=== PATIENT | female | born 1930 | race Caucasian/White ===

== ENCOUNTER → 2016-05-22 | Outpatient (REF) | payer MEDICARE, MEDICAID ==
[~2016-05-22] MED LIST: /AMLO25TA PO; /ESCI10TA; /ESCI20TA OR; /ESCI20TA PO; /ESOM40CA; /ESOM40CA OR; /MOXI40TA PO; /ONDA4TA; /ONDA4TA OR; /ONDA4TA SL; ACET500C; ACET500T37 PO; ACET50TA PO; ACET65TA OR; ALBU83IN INH; ALDA25TA2 PO; ALLE25CA OR; AMBIEN10 PO; AMLO10TA OR; ARTI99.0 OU; ASPI81TA13 PO; ATENOLOL50 PO; ATOR1TAB21 PO; ATRO1SOL13 INH; AZOR; AZOR PO; BACITAB3 PO; BACT2OIN2 TOP; BARRIER TOP; BENI20TA5 PO; BENI40TA3 PO; BISA10SU2; BISA10SU4 PR; BISA5TA; BISAC5TA OR; BISO10TA PO; BISO5TAB54 PO; CALCCHW12; CALCWAF4 PO; CATA0.2T OR; CELEBRE200 PO; CEPALOZ PO; CHONDROITIN; CIPR25SS OR; CLON0.2T OR; CLON0.2T PO; COLA100C2; DEMA20TA PO; DEMA20TA6 PO; DESITIN TOP; DETR10TA PO; DETR2CAP PO; DETR4CAP OR; DIABETIC TOP; DIPH2.5L OR; DITROPAXL5 PO; DULC10SU2 PR; DYAZ37.5; DYAZ37.5 OR; ECOT325T5; ENEMENE3 PR; FERR325T; FISH1000 PO; FLON0.054; FOLI1TAB OR; FURO20TA2 PO; FURO80TA2 PO; GABA300C2 PO; GABA400C PO; HYDR10TA2 OR; HYDR20IN2 IJ; HYDR50TA7 OR; HYDRPOW75 PO; IMMODIUM; IMODIUM2 PO; INDERAL PO; K-TA1TAB PO; LASI20TA PO; LASI40TA PO; LEVO100T5 PO; LEVO2TA PO; LEVO50TA4 PO; LEVO75TA4 PO; LEXA1TAB2 PO; LEXAPRO10 PO; LIDO5DIS; LIDOCAINE 5% TOP; LIDODERM TOP; LIPITOR20 PO; LOPE2TAB PO; LOPE2TAB3 PO; LOPERAMIDE; LOPERAMIDE PO; LOSA50TA20 PO; MAALSUS16 PO; MED FOR NEUROPATHY PO; METO5SOL PO; MILKSUS PO; MOM; MOXI1TAB PO; MULTIVIT PO; MULTTAB37 PO; MYCELEXTRO PO; MYCOLOG2; MYSO50TA; NAPR500T2 PO; NEUR100C PO; NEUR600T PO; NEXIUM40 PO; NORCOTAB PO; NORT10CA2 OR; NORT10CA2 PO; NORT25CA2 OR; NORV5TAB; NYST10PW TOP; OCUVTAB PO; OMEP40CA2 PO; OPTI0.5D5 OU; OXYC10TA56; OXYCODONE; PAME50CA OR; PAMELOR PO; POLY0.05 OU; POTA10CA32 PO; PRED20TA OR; PRESCAP PO; PRESCAP4 PO; PRIL2.5P PO; PRIL40CA PO; PRIM250T PO; PRIM250T3 OR; PRIM250T3 PO; PRIM25TA PO; PRIMI25TA; PRIMIDONE PO; PRIN10TA PO; PROBCAP4 PO; PROP10TAB PO; PROP80CA; PROP80CA OR; PROP80TA PO; PROT1TAB2 PO; PROZAC40 PO; Plaquenil PO; SALINE EYE OU; SENN8.6T5; SOMA250T PO; SPIR25TA2 PO; SYNT50TA OR; SYSTSOL5 OS; THERGRAN; TORS100T12 PO; TRIAM/HCTZ PO; TUMS500C OR; TYLE325T5 PO; TYLE500T53; TYLENOL325 PO; ULTR50TA PO; VENTAER IN; VENTAER INH; VENTOLIN INH; VICO5TAB PO; VICOBULK PO; VITA10002 PO; VITA100066 PO; VITA200015 PO; VITA20002 OR; VITA250L PO; VITAD1000T FT; VITAMIN B 12; VITAMIN B 12 PO; VITAMIN D50000 UNT OR; VITMTA PO; VOLT1GEL24 TOP; ZITHROM250 PO; ZOLP-187 PO; ZOVI5OIN8 TOP; [UNRECOGNIZED DRUG - CODE] DT; [UNRECOGNIZED DRUG - CODE] OU; [UNRECOGNIZED DRUG - CODE] PO; [UNRECOGNIZED DRUG - CODE] PO; [UNRECOGNIZED DRUG - CODE] PO; [UNRECOGNIZED DRUG - CODE] TOP; [UNRECOGNIZED DRUG - OTHER] [1,]; milk of magnesia PO; mylanta PO; premarin cream; tums PO
== END ==
PROVIDERS: ATTEND Internal Medicine
DX: E03.9 Hypothyroidism, unspecified (principal)

== ENCOUNTER → 2016-06-18 | Outpatient (REF) | payer MEDICARE, MEDICAID ==
[~2016-06-18] MED LIST changes: +CEPA1LOZ5 PO; -CEPALOZ PO; -PRIM250T PO; +PRIM250T5 PO; +TORS100T PO; -TORS100T12 PO
[2016-06-18 11:10] LABS: CALCIUM LEVEL 8.8 MG/DL (8.8-10.2); CREATININE FOR GFR 0.95 MG/DL (0.55-1.02); GLOMERULAR FILTRATION RATE 59.5 (>32); POTASSIUM SERUM 4.3 MEQ/L (3.5-5.1)
== END ==
PROVIDERS: ATTEND Internal Medicine
DX: I10 Essential (primary) hypertension (principal)

== ENCOUNTER 2016-07-23 18:41 | Inpatient (IN) | payer MEDICARE, MEDICAID ==
[~2016-07-23] VITALS: Ht 157.5 cm; Wt 91.7 kg
[~2016-07-23 18:41] MED LIST changes: -ACET50TAOT PO; -ALUMSUS2 PO; -BIOTSPR MT; -INDE1CAP6 PO; -LIDO1OIN2 TOP; -LOPE2TAB5 PO; -MYLASSUD PO; -POTA10CA PO; -SYNT137T7 PO; -TRAM50TA2 PO
[2016-07-23] MEDS ORDERED: ACETAMINOPHEN TAB 650MG DOSE (2X325MG) PO ONE (19:00)
[2016-07-23] MEDS ORDERED: NS 500 ML IV ONE (19:00)
[2016-07-23] MEDS ORDERED: ACETAMINOPHEN 650 MG SUPP As Ordered ONE (19:18)
[2016-07-23] MEDS ORDERED: hydrALAZINE INJ 20 MG/ML VIAL IV ONE (19:30)
[2016-07-23] MEDS ORDERED: ACETAMINOPHEN 650 MG SUPP PR ONE (19:30)
--- NOTE | 2016-07-23 19:41 | REP ---
PORTABLE CHEST: Portable supine film of the chest was performed and compared to prior study of 04/08/2016. There appears to be infiltrate in the left lower lobe. Chronically prominent interstitial markings are seen diffusely bilaterally as seen on prior study. Heart is mildly enlarged. There is tortuosity of the thoracic aorta. Multiple calcified lymph nodes are seen in the mediastinum. IMPRESSION: Left lower lobe infiltrate. Signed by Gato Courtney MD 07/23/2016 08:13 P
[2016-07-23 20:31] LABS: INR 1.03
[2016-07-23 20:36] LABS: ALBUMIN 3.2 GM/DL (3.2-5.2); ALKALINE PHOSPHATASE 166 U/L (45-117); ALT/SGPT 13 U/L (12-78); ANION GAP 12 MEQ/L (8-16); AST/SGOT 14 U/L (15-37); BILIRUBIN,DIRECT < 0.1 MG/DL (0.0-0.2); BILIRUBIN,TOTAL 0.3 MG/DL (0.2-1.0); BLOOD UREA NITROGEN 16 MG/DL (7-18); CALCIUM LEVEL 8.7 MG/DL (8.8-10.2); CARBON DIOXIDE LEVEL 29 MEQ/L (21-32); CHLORIDE LEVEL 98 MEQ/L (98-107); CREATININE FOR GFR 1.29 MG/DL (0.55-1.02); GLOMERULAR FILTRATION RATE 41.8 (>32); GLUCOSE, FASTING 313 MG/DL (83-110); POTASSIUM SERUM 3.9 MEQ/L (3.5-5.1); SODIUM LEVEL 139 MEQ/L (136-145); TOTAL PROTEIN 7.8 GM/DL (6.4-8.2)
[2016-07-23 20:54] LABS: MEAN CORPUSCULAR HEMOGLOBIN 31.9 pg (27.0-33.0); MEAN CORPUSCULAR HGB CONC 32.5 g/dl (32.0-36.5); MEAN CORPUSCULAR VOLUME 97.9 fl (80.0-96.0); PLATELET COUNT, AUTOMATED 328 k/mm3 (150-450); RED CELL DISTRIBUTION WIDTH 13.9 % (11.5-14.5); WHITE BLOOD COUNT 20.8 K/mm3 (4.0-10.0)
[2016-07-23] MEDS ORDERED: LevoFLOXacin IV 500 MG in APPROPRIATE DILUENT 1 EA IV ONE (21:00)
[2016-07-23] MEDS ORDERED: LIDO1OIN2 TOP (21:43)
[2016-07-23] MEDS ORDERED: fentaNYL 100 MCG/2 ML INJECTION (J3010) IV ONE (21:45)
[2016-07-23] MEDS ORDERED: ALUMSUS2 PO (22:03)
[2016-07-23] MEDS ORDERED: POTA10CA PO (22:03)
[2016-07-23] MEDS ORDERED: LOPE2TAB5 PO (22:03)
[2016-07-23] MEDS ORDERED: SYNT137T7 PO (22:03)
[2016-07-23] MEDS ORDERED: BISA10SU4 PR (22:03)
[2016-07-23] MEDS ORDERED: INDE1CAP6 PO (22:03)
[2016-07-23] MEDS ORDERED: TRAM50TA2 PO (22:03)
[2016-07-23] MEDS ORDERED: MYLASSUD PO (22:03)
[2016-07-23] MEDS ORDERED: ACET50TAOT PO (22:03)
[2016-07-23] MEDS ORDERED: BIOTSPR MT (22:05)
[2016-07-23] MEDS ORDERED: ENEMENE3 PR (22:05)
[2016-07-23] MEDS ORDERED: MILKSUS PO (22:05)
[2016-07-23] MEDS ORDERED: ISOVUE-370 76% 100ML VIAL (Q9967) As Ordered ONE (22:12)
--- NOTE | 2016-07-23 23:10 | REPUSA ---
CT of the abdomen and pelvis with contrast Clinical statement: Pain. Technique: Multiple axial CT images were obtained from the base of the lungs through the floor of the pelvis utilizing 5 mm axial slices after administration of nonionic intravenous contrast. Coronal an d sagittal reconstructions were also obtained. No comparison is available. Findings: Chest: There is a right lower lobe infiltrate. There is a small left-sided pleural effusion. Abdomen: The liver, spleen, pancreas, kidneys, and adrenal glands are unremarkable. The aorta is with in normal limits. There is no evidence of abdominal lymphadenopathy or ascites. Pelvis: The bowel is unremarkable, with no obstructive or inflammatory changes. Sigmoid diverticulosi s is appreciated. The urinary bladder is catheterized and contracted. The other pelvic structures massimo ear grossly intact. There is no evidence of pelvic lymphadenopathy or ascites. Bones: There are no suspicious osseous abnormalities seen. Right hip arthroplasty is in place. Mild m ultilevel degenerative disc disease is seen throughout the spine. Impression: 1. No obstructive or inflammatory bowel changes. Sigmoid diverticulosis. 2. Small right lower lobe infiltrate. Small left-sided pleural effusion. 3. Mild spondylosis of the spine.
[2016-07-23] MEDS ORDERED: BISACODYL 10 MG SUPP PR PRN (23:15)
[2016-07-23] MEDS ORDERED: MOM 30ML SUSPENSION UDC PO PRN (23:15)
[2016-07-23] MEDS ORDERED: FLEET ENEMA PR PRN (23:15)
[2016-07-23] MEDS ORDERED: LOPERAMIDE 2 MG CAP PO PRN (23:15)
[2016-07-23] MEDS ORDERED: VANCOMYCIN HCL 1,000 MG, VIAL MATE ADAPTER 1 EACH in D5W 250 ML IV ONE (23:15)
[2016-07-23] MEDS ORDERED: MAALOX 30 ML SUSP *UDC PO PRN (23:15)
[2016-07-23] MEDS ORDERED: ALBUTEROL SULFATE 2.5 MG/0.5 ML INH NEB SOLN INH PRN (23:15)
[2016-07-23] MEDS ORDERED: NS 1,000 ML IV SCH (23:30)
[2016-07-23] MEDS ORDERED: ONDANSETRON 4 MG TAB (S0181) PO PRN (23:30)
[2016-07-24] VITALS (7 sets, daily range): BP systolic 110–133; BP diastolic 56–77
[2016-07-24] MEDS ORDERED: MEROPENEM INJ 1 GM in D5W MINI-BAG PLUS 100 ML IV SCH ×2
[2016-07-24] MEDS: LOSARTAN 50 MG TAB PO SCH ×2 (01:19→21:28)
[2016-07-24] MEDS: GABAPENTIN 300 MG CAP PO SCH ×3 (01:19→21:26)
[2016-07-24] MEDS: PRIMIDONE 250 MG TAB PO SCH ×3 (02:25→21:26)
[2016-07-24] MEDS: SALIVA SUBSTITUTE(MOUTHKOTE) BTL MT PRN ×2 (02:26→09:25)
--- NOTE | 2016-07-24 04:27 | PHACANCOPD ---
PHARMACY VANCOMYCIN DOSING Pt Demographics Demographics Patient Age:85 , Weight:93.800 , Gender: female Adjusted Body Weight Date: 07/24/16, Adjusted Body Weight: [67.6] Kg Vancomycin Vancomycin indication: SEPSIS,PNEUMONIA Vancomycin Target Ranges: 10-20 mcg/ml Vancomycin Load Y/N: No Load Dose Date Time Vancomycin Load Dose: Date: Time: Vancomycin Dose Date: 07/24/16. Current Vancomycin Dose: Intermittent Dosing?: No Labs Labs Laboratory Tests 07/23/16 19:14 Red Blood Count 4.43, Mean Corpuscular Volume 97.9 H, Mean Corpuscular Hemoglobin 31.9, Mean Corpuscular Hemoglobin Concent 32.5, Red Cell Distribution Width 13.9, Neutrophils (%) (Auto) , Lymphocytes (%) (Auto) , Monocytes (%) (Auto) , Eosinophils (%) (Auto) , Basophils (%) (Auto) , Neutrophils # (Auto) , Lymphocytes # (Auto) , Monocytes # (Auto) , Eosinophils # (Auto) , Basophils # (Auto) Micro Microbiology 07/24/16 Blood Culture, Received Pending 07/23/16 Blood Culture, Received Pending 07/24/16 Group A Streptococcus Screen (JOCELYNE) - Final, Resulted 07/24/16 Group A Streptococcus Screen (JOCELYNE), Resulted Pending 07/24/16 MRSA Screen, Received Pending 07/23/16 Influenza Virus Type A Antigen - Final, Complete 07/23/16 Influenza Virus Type B Antigen - Final, Complete 07/23/16 Urine Culture, Received Pending Creatinine Clearance Date:07/24/16. Creatinine Clearance: [34]CALCULATED. Pending Labs VANCOMYCIN TROUGH DUE 07/25@1800 Assessment and Plan Maintaining Current Dose?: Yes Reason for dose change: No Dose Change Pharmacist Note Pharmacist Note Date: 07/24/16. Pharmacist note:85 YOF ADMITTED W/SEPSIS,PNEUMONIA:Begun on Meropenem 1 G IV Q12H and Vancomycin per consult:Vancomycin 1 G@0100,then continue w/1 gram IV Q24H@1900: trough ordered prior to 3rd dose on 07/25@1800: will continue to monitor SCR and levels JENSEN CESAR PHARMACY Jul 24, 2016 04:27
--- NOTE | 2016-07-24 06:10 | ECGEPIP ---
Stationary ECG Study [facility] Test Date: 2016-07-24 Pat Name: CLEVELAND MEDINA Department: Room: [place] [address] Gender: F Prosthetic Assistant: JOSE : 1930 Requested By: TIM ERICKSON Order Number: [id number] Reading MD: Jammie Browne Measurements Intervals [place] Rate: 84 P: 17 GA: 174 QRS: 23 QRSD: 89 T: 27 QT: 409 QTc: 484 Interpretive Statements SINUS RHYTHM ST DEVIATION AND MODERATE T-WAVE ABNORMALITY, CONSIDER ANTERIOR ISCHEMIA NEW T WAVE ABN C/W 08/09/14 Electronically Signed On 07-24-2016 6:09:45 EST by Jammie Browne
[2016-07-24] MEDS: LEVOTHYROXINE 0.137 MG TAB (137MCG) PO SCH (06:21)
[2016-07-24] MEDS: LIDOCAINE 5% OINT 30 GM TOP SCH ×4 (09:00→21:25)
[2016-07-24] MEDS ORDERED: CYANOCOBALAMIN 500 MCG TAB PO SCH (09:00)
[2016-07-24] MEDS ORDERED: ENOXAPARIN 30 MG/0.3 ML SYR (J1650) SC SCH (09:00)
[2016-07-24] MEDS: traMADol 50 MG TAB PO SCH ×2 (09:22→21:26)
[2016-07-24] MEDS: ESCITALOPRAM OXALATE 10 MG TAB (LEXAPRO) PO SCH (09:22)
[2016-07-24] MEDS: ACETAMINOPHEN 500 MG TAB PO SCH ×2 (09:23→21:27)
[2016-07-24] MEDS: ASPIRIN 81 MG ENTERIC TAB PO SCH (09:23)
[2016-07-24] MEDS: VITAMIN D 1,000 INTERNATIONAL UNITS TABLET PO SCH (09:23)
[2016-07-24] MEDS: PROPRANOLOL 80 MG LA CAP PO SCH (09:24)
[2016-07-24] MEDS: LACTOBACILLUS ACIDOPHILUS CAP (BACID) PO SCH ×2 (09:24→13:42)
[2016-07-24] MEDS: SPIRONOLACTONE 25 MG TAB PO SCH (09:24)
[2016-07-24] MEDS: MEROPENEM INJ 1 GM in D5W MINI-BAG PLUS 100 ML IV SCH ×2 (09:26→21:27)
[2016-07-24] MEDS: NYSTATIN 100,000 UNITS/GM TOPICAL PWD 15 GM TOP SCH ×2 (09:26→21:27)
--- NOTE | 2016-07-24 10:14 | HPEPDOC ---
General Date of Admission Jul 23, 2016 at 21:37 Chief Complaint The patient is a 85-year-old female admitted with a reason for visit of Severe Sepsis. Source: Patient, Family, RN notes reviewed, Old records Exam Limitations: Clinical conditions Timing/Duration: This afternoon Severity: Moderate Associated Symptoms: Diaphoresis, Fever, Shortness of breath History of Present Illness Ms. Garcia is an 85 year old female who presents to [facility]'s Emergency Department with altered mental status. She is accompanied by her daughter. She is a resident of [facility]. Patient has a medical history significant for gastroesophageal reflux disease, hypothyroidism, anemia, central tremor, polyneuropathy, general muscle weakness , colitis, chronic kidney disease stage III, diastolic heart failure, dermatitis , depression, dyslipidemia, hypertension, hypokalemia, vitamin D deficiency, dry eyes, chronic pain, constipation, dyspepsia, and macular degeneration. Patient's presenting complaint is altered mental status. Daughter states that when she spoke with her mother by telephone on the morning of 07/23/16 she was alert and oriented. However, when her other daughter called her later in the day she stated that her mother was incoherent and babbling. She did not think anything of it since her mother can appear so after a nap. However, when an aide entered the room a time after the call had ended the patient was still holding the phone and babbling and muttering into it. From somewhat of a limited history I can ascertain that the patient developed sharp abdominal pain during the afternoon. She had associated nausea (which has since resolved), but no vomiting. States that she felt chilly last evening and somewhat feverish. Reports shortness of breath for several days as well as ankle swelling. Now complains of diaphoresis. Is alert and oriented x2 (person and date of ). Denies the following review of systems: headache, acute changes to vision and/ or hearing, numbness and/or tingling, sore throat, hematochezia, melena, hematuria, back pain, radiating pain. Hospitalist was called and patient was admitted for general medical care. Home Medications Scheduled (Refresh Optive 0.5-0.9 %) 1 Gabriel Gabriel 1 GABRIEL OU TID (Reported) TAKES AT 0500, 1000, AND 1400 (Preservision Areds) 1 Cap Cap 1 CAP PO BID (Reported) Acetaminophen (Acetaminophen Extra Stren) 500 Mg Tab 500 MG PO BID (Reported) TAKES AT 0800 AND 1200 Aspirin (Aspirin EC) 81 Mg Tab 81 MG PO DAILY (Reported) Atorvastatin Calcium (Atorvastatin Calcium) 10 Mg Tab 10 MG PO DAILY Cholecalciferol (Vitamin D) 1,000 Unit Tab 5,000 UNIT PO DAILY (Reported) TAKES AT 1200 Cyanocobalamin (Vitamin B-12) 1,000 Mcg Tab 1,000 MCG PO DAILY (Reported) Escitalopram Oxalate (Lexapro) 20 Mg Tab 20 MG PO DAILY (Reported) Fish Oil (Fish Oil) 1,000 Mg Cap 1,000 MG PO DAILY (Reported) Gabapentin (Neurontin) 600 Mg Tab 600 MG PO BID (Reported) Lactobacillus Acidophilus (Bacid) 1 Tab Tab 1 TAB PO BID (Reported) TAKES AT 0800 AND 1200 Levothyroxine Sodium (Synthroid) 137 Mcg Tab 137 MCG PO QAM (Reported) Lidocaine HCl (Lidocaine 5% Ointment) 1 Dose/35.44 Gm Oint 1 DOSE TOP QID ( Reported) APPLIES FROM KNEES TO TOES Loperamide HCl (Loperamide HCl) 2 Mg Tab 2 MG PO BID (Reported) Losartan Potassium (Losartan Potassium) 50 Mg Tab 50 MG PO QHS (Reported) Potassium Chloride (Klor-Con M10) 10 Meq Tabcr 20 MEQ PO BID (Reported) Primidone (Primidone) 250 Mg Tab 250 MG PO BID (Reported) Propranolol Hcl (Inderal LA) 160 Mg Cap 160 MG PO DAILY (Reported) Spironolactone (Spironolactone) 25 Mg Tab 25 MG PO DAILY (Reported) Torsemide (Torsemide) 100 Mg Tab 50 MG PO BID (Reported) TAKES AT 0800 AND 1200 Tramadol HCl (Tramadol HCl) 50 Mg Tab 25 MG PO BID (Reported) Scheduled PRN (Biotene Moisturizing Mout) 1 Spr Spr 1 SPR MT ASDIRECTED PRN PRN DRY MOUTH ( Reported) Acetaminophen (Acetaminophen) 500 Mg Tab 500 MG PO Q4H PRN PRN PAIN SCALE 1-5 ( Reported) Albuterol Sulfate (Albuterol Sulfate) 2.5 Mg/3 Ml Nebu 2.5 MG INH QID PRN PRN SHORTNESS OF BREATH (Reported) Aluminum/Magnesium/Simeth (Mag-Al Plus 200-200-20 mg/5Ml) 30 Ml Susp 30 ML PO QID PRN PRN DYSPEPSIA (Reported) Bisacodyl (Bisacodyl) 10 Mg Sup 10 MG ME DAILY PRN PRN CONSTIPATION (Reported) Loperamide HCl (Loperamide HCl) 2 Mg Tab 2 MG PO DAILY PRN PRN DIARRHEA ( Reported) Milk Of Magnesia (Milk of Magnesia) 1,200 Mg/15 Ml Yelena 30 ML PO DAILY PRN PRN CONSTIPATION (Reported) Sodium Phosphate/Biphosphate (Enema 7-19 gm/118Ml) 1 Rick Rick 1 RICK ME DAILY PRN PRN CONSTIPATION (Reported) Allergies Coded Allergies: Codeine (Verified Allergy, Severe, ANAPHYLAXIS, HEART PALPITATION, 08/19/12) Hydromorphone (Verified Allergy, Severe, WHEEZING,NECK SWELLING, 08/19/12) Erythromycin (Verified Allergy, Intermediate, RASH,GI UPSET, 08/19/12) Oxycodone (Verified Allergy, Intermediate, RASH, 08/19/12) Penicillins (Verified Allergy, Intermediate, RASH, 08/19/12) Penicillins Cross Reactors (Verified Allergy, Intermediate, RASH, 08/19/12) Bacitracin (Unverified Adverse Reaction, Mild, RASH, 08/19/12) Polymyxin B (Unverified Adverse Reaction, Mild, RASH, 08/19/12) TAPE (Unverified Adverse Reaction, Mild, RASH AND ITCHING, 05/23/09) Past Medical History Medical History 1. Gastroesophageal reflux disease 2. Hypothyroidism 3. Anemia 4. Central tremor 5. Polyneuropathy 6. General muscle weakness 7. Colitis 8. Chronic kidney disease, stage III 9. Diastolic heart failure 10. Dermatitis 11. Depression 12. Dyslipidemia 13. Hypertension 14. Hypokalemia 15. Vitamin D deficiency 16. Dry eyes 17. Chronic pain 18. Constipation 19. Dyspepsia 20. Macular degeneration Surgical History 1. Tonsillectomy 2. Appendectomy 3. Hysterectomy 4. Vaginal deliveries x3 5. Cholecystectomy 6. Vocal cord polypectomy 7. Right hip replacement 8. Left knee replacement 9. B/L cataracts 10. 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 Review of Symptoms Constitutional: Reports: Chills, Fever, Denies: Night Sweats Eyes: Denies: Vision change ENT: Denies: Head Aches, Sore Throat Skin: Denies: Lesions, Rash Pulmonary: Denies: Cough Cardiovascular: Reports: Edema (ankles), Denies: Chest Pain Gastrointestinal: Reports: Abdominal Pain, Diarrhea, Denies: Hematochezia, Melena, Nausea, Vomiting Genitourinary: Denies: Hematuria Musculoskeletal: Denies: Back Pain Neurological: Denies: Numbness, Weakness Physical Examination General Exam: Positive: Cooperative Eye Exam: Positive: Conjunctiva & lids normal, EOMI, PERRLA, Negative: Sclera icteric ENT Exam: Positive: Atraumatic, Tongue Midline (fissured), Negative: Mucous membr. moist/pink Neck Exam: Positive: Supple, Negative: JVD, Lymphadenopathy, thyromegaly Chest Exam: Positive: Clear to auscultation, Normal air movement Heart Exam: Positive: Normal S1, Normal S2, Rate Normal, Regular Rhythm Telemetry: Positive: No significant arrhythmia Abdomen Exam: Positive: Normal bowel sounds, Soft, Tenderness Extremity Exam: Positive: Edema, Normal pulses, Swelling, Negative: Clubbing, Cyanosis Neuro Exam: Negative: Normal Speech Vital Signs T 101 HR 92 RR 22 BP 133/65 O2 92% 4L NC Height (in): 62 Weight (kg): 93.8 BMI (kg): 37.8 Laboratory Data Labs 24H Laboratory Tests 2 07/23/16 19:14: Aspartate Amino Transf (AST/SGOT) 14L, Alanine Aminotransferase (ALT/SGPT) 13, Alkaline Phosphatase 166H, Total Bilirubin 0.3, Direct Bilirubin < 0.1, Albumin 3.2, Albumin/Globulin Ratio 0.70L, Anion Gap 12, White Blood Count 20.8H, Red Blood Count 4.43, Hemoglobin 14.1, Hematocrit 43.3, Mean Corpuscular Volume 97.9H, Mean Corpuscular Hemoglobin 31.9, Mean Corpuscular Hemoglobin Concent 32.5, Red Cell Distribution Width 13.9, Platelet Count 328, Neutrophils (%) ( Auto) , Lymphocytes (%) (Auto) , Monocytes (%) (Auto) , Eosinophils (%) (Auto) , Basophils (%) (Auto) , Neutrophils # (Auto) , Lymphocytes # (Auto) , Monocytes # (Auto) , Eosinophils # (Auto) , Basophils # (Auto) , Calcium Level 8.7L, Creatine Kinase MB 3.8H, Creatine Kinase MB Relative Index 7.91H, Glomerular Filtration Rate 41.8, Lactic Acid (Sepsis) 3.2*H, Large Unclassified Cells # , Large Unclassified Cells % , Lymphocytes (Manual) 5L, Monocytes ( Manual) 4, Neutrophils 91H, Platelet Estimate NORMAL, Prothromb Time International Ratio 1.03, Prothrombin Time 13.6, Red Blood Cell Morphology NORMAL, Total Creatine Kinase 48, Total Protein 7.8, Troponin I 1.56*H 07/23/16 20:12: Urine Amorphous Sediment , Urine Appearance HAZY, Urine Color YELLOW, Urine pH 6.0, Urine Specific Fortine 1.011, Urine Protein 3+H, Urine Glucose (UA) 1+H, Urine Ketones NEGATIVE, Urine Urobilinogen 0.2, Urine Bilirubin NEGATIVE, Urine Leukocyte Esterase TRACEH, Urine Bacteria (Auto) NEGATIVE, Urine Blood NEGATIVE , Urine Calcium Carbonate Cryst(Auto) , Urine Calcium Oxalate Cryst (Auto) , Urine Calcium Phosphate Sunshine (Auto) , Urine Cellular Casts , Urine Cystine Crystals , Urine Granular Casts (Auto) , Urine Hyaline Casts (Auto) 6, Urine Leucine Crystals , Urine Mucus (Auto) SMALL, Urine Nitrite NEGATIVE, Urine Oval Fat Bodies (Auto) , Urine RBC (Auto) 7H, Urine Renal Epithelial Cells , Urine Sperm (Auto) , Urine Squamous Epithelial Cells 0, Urine Transitional Epithelial Cells , Urine Trichomonas (Auto) , Urine Triple Phosphate Cryst (Auto) , Urine Tyrosine Crystals , Urine Uric Acid Crystals (Auto) , Urine WBC (Auto) 3, Urine Waxy Casts (Auto) , Urine Yeast-Like Cells (Auto) 07/24/16 01:31: Creatine Kinase MB 6.2H, Creatine Kinase MB Relative Index 8.61H, Total Creatine Kinase 72, Troponin I 2.28#*H 07/24/16 01:32: Lactic Acid (Sepsis) 2.9*H CBC/BMP Laboratory Tests 07/23/16 19:14 Red Blood Count 4.43, Mean Corpuscular Volume 97.9 H, Mean Corpuscular Hemoglobin 31.9, Mean Corpuscular Hemoglobin Concent 32.5, Red Cell Distribution Width 13.9, Neutrophils (%) (Auto) , Lymphocytes (%) (Auto) , Monocytes (%) (Auto) , Eosinophils (%) (Auto) , Basophils (%) (Auto) , Neutrophils # (Auto) , Lymphocytes # (Auto) , Monocytes # (Auto) , Eosinophils # (Auto) , Basophils # (Auto) Microbiology Microbiology 07/24/16 Blood Culture, Received Pending 07/23/16 Blood Culture, Received Pending 07/24/16 Group A Streptococcus Screen (JOCELYNE) - Final, Resulted 07/24/16 Group A Streptococcus Screen (JOCELYNE), Resulted Pending 07/24/16 MRSA Screen, Received Pending 07/23/16 Influenza Virus Type A Antigen - Final, Complete 07/23/16 Influenza Virus Type B Antigen - Final, Complete 07/23/16 Urine Culture, Received Pending RAD Interpretation STUDY: CXR (LLL infiltrate) Rad Actions: Report Reviewed, Other Rad Comments: (CT abdomen/pelvis: no obstructive/inflammatory changes; small right sided infiltrate; left sided pleural effusion) Assessment/Plan 85 year old female presents with altered mental status likely secondary to healthcare associated pneumonia documented on chest XR. Problems (1) Severe sepsis Status: Resolved Problem Text: Likely secondary to diagnosis of HCAP Start the following - Vancomycin - Meropenem Obtain the following - Blood cultures - MRSA screen - Strep throat cultures IVF @50 (2) Elevated troponin Status: Acute Problem Text: Likely secondary to severe sepsis and HCAP Trend troponin every 6 hours Value at time of admission: 1.56 (3) Abdominal pain Status: Acute Problem Text: Likely a viscerosomatic reflex secondary to pneumonia CT abdomen and pelvis did not yield any significant findings Control pain Rx IV Zofran for nausea (4) Hypothyroid Status: Chronic Problem Text: Continue current home medication - Synthroid (5) Tremor Status: Chronic Problem Text: Continue home medication - Primidone (6) Polyneuropathy Status: Chronic Problem Text: Continue home medication - Gabapentin (7) Colitis Status: Chronic Problem Text: Continue home medications for diarrhea and constipation - Imodium - Bacid - Fleet enema - Milk of magnesia - Dulcolax - Mylanta (8) Depression Status: Chronic Problem Text: Continue home medication - Lexapro (9) Vitamin D deficiency Status: Chronic Problem Text: Continue home medication - vitamin D supplementation (10) Chronic pain Status: Chronic Problem Text: Continue the following home medications - Tramadol - Lidocaine ointment - Tylenol Plan / VTE VTE Prophylaxis Ordered?: Yes (Lovenox 30mg SC daily) Plan / Urinary Catheter Reason for insertion/continuin: Critical Pt monitoring Plan Plan Severe sepsis likely secondary to HCAP - Vancomycin - Meropenem (secondary to penicillin allergy) - Obtain blood cultures - Obtain strep throat cultures - MRSA screen Abdominal pain - Control pain - CT abdomen/pelvis showed no acute inflammation; likely secondary to LL pneumonia expressing viscerosomatic reflexes Leukocytosis - Likely secondary to infectious etiology (HCAP) - Obtain repeat labs Elevated troponin - Repeat troponin in 6 hours Lactic acidosis - Repeat lactic acid Disposition Admit to PCU Anticipated hospitalization: 2 nights IVF: Continue Diet: Continue Current Activity: Continue Current Diagnostics: Check Labs, Repeat Labs in AM, Obtain Cultures Anticipated Discharge: Assisted Living TIM RAMOS Jul 24, 2016 08:21
--- NOTE | 2016-07-24 11:06 | ECGEPIP ---
Stationary ECG Study [facility] - ED Test Date: 2016-07-23 Pat Name: CLEVELAND MEDINA Department: Room: [place] [address] Gender: F Cat And Dog Bather: екатерина : 1930 Requested By: HECTOR Sandoval Order Number: [id number] Reading MD: Lisa Jang Measurements Intervals [place] Rate: 100 P: 57 SC: 184 QRS: 0 QRSD: 97 T: 79 QT: 366 QTc: 472 Interpretive Statements SINUS TACHYCARDIA NONSPECIFIC ST & T-WAVE ABNORMALITY ABNORMAL RHYTHM ECG INCREASED RATE 07/24/16 Electronically Signed On 07-24-2016 11:05:41 EST by Lisa Jang
--- NOTE | 2016-07-24 12:41 | IPNPDOC ---
Subjective Date Seen The patient was seen on 07/24/16. Subjective Chief Complaint/HPI The patient is a 85-year-old female admitted with a reason for visit of Severe Sepsis. Events since last encounter patient awake and alert this am , does not offer any complaints. her abdominal cramps has resolved, no further fever this am , no cough or phlegm , no nausea or vomiting or diarrhea. denies any chest pain or shortness of breath. Objective Physical Examination General Exam: Positive: Cooperative Eye Exam: Positive: Conjunctiva & lids normal, EOMI, PERRLA, Negative: Sclera icteric ENT Exam: Positive: Atraumatic, Tongue Midline (fissured), Negative: Mucous membr. moist/pink Neck Exam: Positive: Supple, Negative: JVD, Lymphadenopathy, thyromegaly Chest Exam: Positive: Clear to auscultation, Normal air movement Heart Exam: Positive: Normal S1, Normal S2, Rate Normal, Regular Rhythm Telemetry: Positive: No significant arrhythmia Abdomen Exam: Positive: Normal bowel sounds, Soft, Tenderness Extremity Exam: Positive: Edema, Normal pulses, Swelling, Negative: Clubbing, Cyanosis Neuro Exam: Negative: Normal Speech Assessment /Plan Problems (1) Severe sepsis Status: Acute Problem Text: Likely secondary to diagnosis of HCAP Start the following - Vancomycin - Meropenem Obtain the following - Blood cultures - MRSA screen - Strep throat cultures IVF @50 (2) Elevated troponin Status: Acute Problem Text: Likely secondary to severe sepsis and HCAP However may also have Acute coronary syndrome as serial EKG did show some new ST sengment drepression and t wave inversion in the chest leads. patient is DNR and DNI (3) Abdominal pain Status: Acute Problem Text: Likely a viscerosomatic reflex secondary to pneumonia CT abdomen and pelvis did not yield any significant findings Control pain Rx IV Zofran for nausea (4) Hypothyroid Status: Chronic Problem Text: Continue current home medication - Synthroid (5) Tremor Status: Chronic Problem Text: Continue home medication - Primidone (6) Polyneuropathy Status: Chronic Problem Text: Continue home medication - Gabapentin (7) Colitis Status: Chronic Problem Text: Continue home medications for diarrhea and constipation - Imodium - Bacid - Fleet enema - Milk of magnesia - Dulcolax - Mylanta (8) Depression Status: Chronic Problem Text: Continue home medication - Lexapro (9) Vitamin D deficiency Status: Chronic Problem Text: Continue home medication - vitamin D supplementation (10) Chronic pain Status: Chronic Problem Text: Continue the following home medications - Tramadol - Lidocaine ointment - Tylenol (11) Diverticulosis Status: Chronic (12) Diastolic CHF Status: Chronic Problem Text: will continue with spironolactone will hold torsemide for now (13) Pulmonary hypertension Status: Chronic (14) CKD (chronic kidney disease), stage III Status: Chronic Problem Text: will continue to monitor (15) Hypertension Status: Chronic Problem Text: continue losartan , propranolol (16) Herpes simplex Status: Chronic (17) Macular degeneration Status: Chronic Plan/VTE VTE Prophylaxis Ordered?: Yes (Lovenox 30mg SC daily) Plan/Urinary Catheter Reason for insertion/continuin: Critical Pt monitoring Plan IVF: Continue Diet: Continue Current Activity: Continue Current Diagnostics: Check Labs, Repeat Labs in AM, Obtain Cultures Anticipated Discharge: Assisted Living VS, I&O, 24H, [facility] Vital Signs/I&O Vital Signs Date Time Temp Pulse Resp B/P Pulse Ox O2 Delivery O2 Flow Rate FiO2 07/24/16 12:00 98.3 75 18 118/64 97 Nasal Cannula 4.0 I&O- Last 24 Hours up to 6 AM 07/24/16 06:00 Intake Total 520 ml Output Total 200 ml Balance 320 ml Laboratory Data 24H LABS Laboratory Tests 2 07/23/16 19:14: Aspartate Amino Transf (AST/SGOT) 14L, Alanine Aminotransferase (ALT/SGPT) 13, Alkaline Phosphatase 166H, Total Bilirubin 0.3, Direct Bilirubin < 0.1, Albumin 3.2, Albumin/Globulin Ratio 0.70L, Anion Gap 12, White Blood Count 20.8H, Red Blood Count 4.43, Hemoglobin 14.1, Hematocrit 43.3, Mean Corpuscular Volume 97.9H, Mean Corpuscular Hemoglobin 31.9, Mean Corpuscular Hemoglobin Concent 32.5, Red Cell Distribution Width 13.9, Platelet Count 328, Neutrophils (%) ( Auto) , Lymphocytes (%) (Auto) , Monocytes (%) (Auto) , Eosinophils (%) (Auto) , Basophils (%) (Auto) , Neutrophils # (Auto) , Lymphocytes # (Auto) , Monocytes # (Auto) , Eosinophils # (Auto) , Basophils # (Auto) , Calcium Level 8.7L, Creatine Kinase MB 3.8H, Creatine Kinase MB Relative Index 7.91H, Glomerular Filtration Rate 41.8, Lactic Acid (Sepsis) 3.2*H, Large Unclassified Cells # , Large Unclassified Cells % , Lymphocytes (Manual) 5L, Monocytes ( Manual) 4, Neutrophils 91H, Platelet Estimate NORMAL, Prothromb Time International Ratio 1.03, Prothrombin Time 13.6, Red Blood Cell Morphology NORMAL, Total Creatine Kinase 48, Total Protein 7.8, Troponin I 1.56*H 07/23/16 20:12: Urine Amorphous Sediment , Urine Appearance HAZY, Urine Color YELLOW, Urine pH 6.0, Urine Specific Lyford 1.011, Urine Protein 3+H, Urine Glucose (UA) 1+H, Urine Ketones NEGATIVE, Urine Urobilinogen 0.2, Urine Bilirubin NEGATIVE, Urine Leukocyte Esterase TRACEH, Urine Bacteria (Auto) NEGATIVE, Urine Blood NEGATIVE , Urine Calcium Carbonate Cryst(Auto) , Urine Calcium Oxalate Cryst (Auto) , Urine Calcium Phosphate Sunshine (Auto) , Urine Cellular Casts , Urine Cystine Crystals , Urine Granular Casts (Auto) , Urine Hyaline Casts (Auto) 6, Urine Leucine Crystals , Urine Mucus (Auto) SMALL, Urine Nitrite NEGATIVE, Urine Oval Fat Bodies (Auto) , Urine RBC (Auto) 7H, Urine Renal Epithelial Cells , Urine Sperm (Auto) , Urine Squamous Epithelial Cells 0, Urine Transitional Epithelial Cells , Urine Trichomonas (Auto) , Urine Triple Phosphate Cryst (Auto) , Urine Tyrosine Crystals , Urine Uric Acid Crystals (Auto) , Urine WBC (Auto) 3, Urine Waxy Casts (Auto) , Urine Yeast-Like Cells (Auto) 07/24/16 01:31: Creatine Kinase MB 6.2H, Creatine Kinase MB Relative Index 8.61H, Total Creatine Kinase 72, Troponin I 2.28#*H 07/24/16 01:32: Lactic Acid (Sepsis) 2.9*H 07/24/16 07:21: Creatine Kinase MB 5.2H, Creatine Kinase MB Relative Index 8.66H, Lactic Acid Level 2.3*H, Total Creatine Kinase 60, Troponin I 2.06*H CBC/BMP Laboratory Tests 07/23/16 19:14 Red Blood Count 4.43, Mean Corpuscular Volume 97.9 H, Mean Corpuscular Hemoglobin 31.9, Mean Corpuscular Hemoglobin Concent 32.5, Red Cell Distribution Width 13.9, Neutrophils (%) (Auto) , Lymphocytes (%) (Auto) , Monocytes (%) (Auto) , Eosinophils (%) (Auto) , Basophils (%) (Auto) , Neutrophils # (Auto) , Lymphocytes # (Auto) , Monocytes # (Auto) , Eosinophils # (Auto) , Basophils # (Auto) Microbiology Microbiology 07/24/16 Blood Culture, Received Pending 07/23/16 Blood Culture, Received Pending 07/24/16 Group A Streptococcus Screen (JOCELYNE) - Final, Resulted 07/24/16 Group A Streptococcus Screen (JOCELYNE), Resulted Pending 07/24/16 MRSA Screen, Received Pending 07/23/16 Influenza Virus Type A Antigen - Final, Complete 07/23/16 Influenza Virus Type B Antigen - Final, Complete 07/23/16 Urine Culture, Received Pending LOLA GIL MD Jul 24, 2016 12:41
[2016-07-24 13:31] LABS: CALCIUM LEVEL 8.5 MG/DL (8.8-10.2); CREATININE FOR GFR 1.07 MG/DL (0.55-1.02); GLOMERULAR FILTRATION RATE 51.9 (>32); POTASSIUM SERUM 3.9 MEQ/L (3.5-5.1)
[2016-07-24] MEDS: ACETAMINOPHEN 500 MG TAB PO PRN (18:16)
[2016-07-24] MEDS: VANCOMYCIN HCL 1,000 MG, VIAL MATE ADAPTER 1 EACH in D5W 250 ML IV SCH (18:17)
[2016-07-24] MEDS: ENOXAPARIN 100MG/1ML SYRINGE (J1650) SC SCH (21:25)
--- NOTE | 2016-07-24 21:38 | CR ---
DATE OF CONSULTATION: 07/24/2016 REFERRING PHYSICIAN: Dr. Lexis Rodriguez REASON FOR CONSULTATION: 1. Acute coronary syndrome. 2. Abnormal troponin I. 3. Diastolic heart failure. 4. Abnormal electrocardiogram (ECG). HISTORY OF PRESENT ILLNESS: Kamran Garcia is a pleasant 85-year-old obese woman who is DO NOT RESUSCITATE status and has been a resident at the [facility]. She was hospitalized to [facility] on this occasion yesterday (07/23/2016) at which time she was thought to have a severe sepsis. While in hospital she was noted to have mildly elevated troponin I levels and abnormal electrocardiogram (ECG). Cardiology is therefore consulted for acute coronary syndrome/Non ST-elevation myocardial infarction (NSTEMI). The patient has not been previously known to coronary heart disease. A Regadenoson stress SPECT myocardial perfusion imaging study from June 2010 was found to be normal. Echocardiogram Doppler reported Grade 1 LV diastolic dysfunction with normal LV systolic function and no regional wall motion abnormalities. No significant valve disease. Suggestive of mild elevation of pulmonary artery systolic pressure. Echocardiogram Doppler 06/25/2015 reported normal LV size with mild left ventricular hypertrophy and hyperdynamic LV systolic function. Grade 2 LV diastolic dysfunction. No hemodynamically significant valve disease. Normal estimated central venous pressure. Suggestive of moderate pulmonary hypertension. No previous cardiac catheterization. CARDIAC SYSTEM STATUS: Patient is highly sedentary and is mostly dependent upon wheelchair to get about. She denies any pain, pressure, tightness, squeezing or heaviness in the chest, neck, jaw or upper extremities. She denies any exertional dyspnea however she is highly sedentary. No orthopnea or paroxysmal nocturnal dyspnea (PND). No leg or ankle swelling that she is aware of. No pre-syncope or syncope. Denies any palpitations. No embolic events. No intermittent claudication. OTHER PAST MEDICAL AND SURGICAL HISTORY: Gastroesophageal reflux disease. Hypothyroidism. Anemia. Central tremor. Polyneuropathy. Generalized muscle weakness. Colitis. Chronic kidney disease Stage 3. Chronic diastolic heart failure. Hypertensive heart disease with heart failure. Abnormal electrocardiogram (ECG). Dermatitis. Depression. Dyslipidemia. Hypokalemia. Vitamin D deficiency. Dry eyes. Chronic pain. Constipation. Dyspepsia. Macular degeneration. Tonsillectomy. Appendectomy. Hysterectomy. Three prior vaginal deliveries. Cholecystectomy. Vocal cord polypectomy. Right hip replacement. Left hip replacement. Bilateral cataract extractions. Basal cell carcinoma excision. FAMILY HISTORY: Heart disease. SOCIAL HISTORY: Non smoker. Rare intake of alcohol. Resident of [facility]. . REVIEW OF SYSTEMS: Fever and chills prior to admission. Abdominal pain, diarrhea. No anxiety, panic attacks or depression. All other 10-point review of system questions negative. She has a chronic resting tremor. HOME MEDICATIONS: As follows: - acetaminophen - albuterol nebulizer - aluminium magnesium simethicone 3 mL four times a day as needed for dyspepsia - aspirin 81 mg daily - Biotine moisturizing mouthwash as needed - Dulcolax 10 mg suppository daily as needed for constipation - Vitamin D 5,000 units daily - Vitamin B12 1,000 mcg daily - Lexapro 20 mg daily - Fish oil 1,000 mg daily - Neurontin 600 mg twice a day - lactobacillus acidophilus 1 tablet twice a day - levothyroxine 137 mcg daily - lidocaine 5% ointment topical four times a day applied knees to toes - loperamide 2 mg as needed diarrhea and 2 mg twice a day - Losartan 50 mg at bedtime - Milk of Magnesia as needed for constipation - potassium chloride 20 mEq twice a day - Primidone 250 mg twice a day - Inderal LA 160 mg daily - Refresh Optive eye drop (one eye drop both eyes three times a day) - Fleet enema daily as needed - spironolactone 25 mg daily - torsemide 100 mg twice a day - Tramadol 25 mg twice a day THE PATIENTS CURRENT MEDICATIONS IN HOSPITAL ARE FOLLOWS: - acetaminophen - Mylanta as needed - albuterol nebulizer four times a day as needed - aspirin 81 mg daily - Dulcolax 10 mg daily as needed per rectum - Vitamin B12 1,000 mcg daily - Lovenox 90 mg subcutaneous every 12 hours - Lexapro 20 mg daily - gabapentin 600 mg by mouth twice a day - lactobacillus acidophilus 1 capsule twice a day - levothyroxine 137 mcg by mouth daily - lidocaine 5% ointment four times a day topical - Imodium 2 mg daily as needed - Losartan 50 mg at bedtime - Milk of Magnesia 30 mL daily as needed - meropenem 1 gram IV every 12 hours - Nystatin powder topical one dose twice a day - Zofran 4 mg every 6 hours as needed - Primidone 250 mg by mouth twice a day - propranolol LA 150 mg daily - saliva substitute sprays as needed - Fleet enema daily as needed constipation - spironolactone 25 mg daily - Ultram 25 mg twice a day - vancomycin 1 gram IV daily - Vitamin D 5,000 units by mouth daily PHYSICAL EXAMINATION: Obese elderly woman who was not in any respiratory or psychological distress. Height 62 inches, weight 93.8 kg, BMI 37.8, temperature 98.0, pulse 68, respiratory rate 20, blood pressure 125/60, O2 saturation 94% on Oxygen 4 liters per minute by nasal cannula. No conjunctival pallor, sclerae icterus, or xanthelasma. Edentulous with presence of upper and lower dentures. Oral mucosa was moist and without pallor. Jugular venous pulsations were 3 cm. Trachea midline. No palpable thyroid. No clubbing, nail bed cyanosis, or splinter hemorrhages. No skin lesions, skin pallor or icterus. Oriented to person, place and time. Mood and affect normal. Curvature of the spine normal. Gait not appropriate to test at this time. Presence of a resting tremor. No focal muscle weakness. Muscle strength and tone appear normal for age. No vesiculations. Respiratory expansion effort was good. No crackles or wheezes. No palpable apex beat. No parasternal heaves, thrills or palpable heart sounds. First heart sound normal. Second heart sound had an accentuated P2 component. No S3, S4 or murmurs appreciated. Carotids are normal in volume and contour and without bruits. Difficult to palpate abdominal aorta due to abdominal obesity. No abdominal bruits. Femoral pulses difficult to palpate due to obesity. Pedal pulse is normal. No lower extremity edema. No varicose veins. Abdomen was obese, soft, nontender with normal bowel sounds. No hepatosplenomegaly but difficult to palpate due to abdominal obesity. Liver span could not be determined due to obesity. Stool for occult blood to be ordered as patient has been started on Lovenox subcutaneously. LABORATORY WORK 07/23/2016: Showed WBC 20.8, hemoglobin 14.1, hematocrit 43.3, platelets 228. PT/INR 1.03, CPK 48, CPK MB 3.8 (7.91%), troponin I 1.56, lactic acid elevated at 3.2. LABORATORY WORK 07/24/2016 AT 1:31 A.M. Showed CPK 72, CPK MB 6.2 (8.61%), troponin I 2.28. LABORATORY WORK 07/24/2016: Shows sodium 142, potassium 3.9, chloride 100, CO2 33, BUN 19, creatinine 1.07. Estimated glomerular filtration rate (GFR) 51.9, glucose 175. PORTABLE CHEST X-RAY 07/23/2016: Reported left lower lobe infiltrate. Tortuosity of the thoracic aorta. Multiple calcified lymph nodes seen in the mediastinum. Chronic prominent interstitial markings diffusely bilaterally. Mild enlargement of the heart. ELECTROCARDIOGRAM 07/23/2016 AT 19:35 HOURS: Shows sinus tachycardia 100 beats per minute, nonspecific ST-T abnormalities. Consider anterior ischemia. ELECTROCARDIOGRAM (ECG) 07/24/2016 AT 03:26 A.M.: Shows sinus rhythm, 84 beats per minute, T inversions V1, V2, V3, V4, V5 and fairly diffuse nonspecific ST-T abnormalities. Consider anterior myocardial ischemia. ASSESSMENT AND PLAN: 1. Non ST-elevation myocardial infarction (NSTEMI). Patient is not having any chest pain. At this point it is not known whether this patients Non ST-elevation myocardial infarction (NSTEMI) is secondary to sepsis versus the primary intracoronary plaque event resulting in primary Non ST-elevation myocardial infarction (NSTEMI). Patient is DO NOT RESUSCITATE status. I explained to the patient to have the options of medical therapy only versus medical therapy combined with an interventional approach involving transfer to [place] for cardiac catheterization with possible percutaneous coronary intervention or other coronary revascularization procedure. The patient does not wish to have cardiac catheterization, percutaneous coronary intervention or coronary artery bypass graft surgery. She wishes to only have medical therapy. At this patients advanced age and with all of her other chronic medical conditions, and DO NOT RESUSCITATE status I concur with the patients decision. Continue aspirin. Recommend continuation of Lovenox for a total of three days after which it can be discontinued. Continue long acting propranolol and Losartan. I do not have any recent liver panels available for my review. A liver panel from 12/03/2010 showed triglycerides 164, total cholesterol 187, LDL cholesterol 96.2, HDL 58. I think it would be reasonable to add some atorvastatin. 2. Abnormal troponin I. As per Non ST-elevation myocardial infarction (NSTEMI) category above. 3. Chronic diastolic heart failure. Patient appears compensated. Blood pressure presently controlled. Continue the current regimen consisting of Losartan and propranolol. Propranolol has the additional component indication in the management of this patient's central tremors. 4. Hypertensive heart disease (with heart failure). As per diastolic heart failure category above. 5. Abnormal electrocardiogram (ECG). Electrocardiogram (ECG) findings as described above. Management as under the Non ST-elevation myocardial infarction (NSTEMI) category above. 6. Chronic right heart failure. Patient appears compensated at present. Continue spironolactone which is being used for management of hypertensive heart disease with heart failure and chronic diastolic heart failure. I note that the patients torsemide that she was on prior to admission is presently om hold. At some point, the patient will likely need to go back on some of the loop diuretic once she starts developing edema or other features or congestion.
[2016-07-24] MEDS ORDERED: SLF 3 ML SYR IV PRN (22:00)
[2016-07-24] MEDS: SLF 3 ML SYR IV SCH (22:19)
[2016-07-25 05:23] VITALS: BP 105/56
[2016-07-25] MEDS: LEVOTHYROXINE 0.137 MG TAB (137MCG) PO SCH (05:32)
[2016-07-25] MEDS: SLF 3 ML SYR IV SCH ×3 (05:32→20:45)
[2016-07-25 05:54] LABS: MEAN CORPUSCULAR HEMOGLOBIN 31.6 pg (27.0-33.0); MEAN CORPUSCULAR HGB CONC 32.9 g/dl (32.0-36.5); RED CELL DISTRIBUTION WIDTH 14.1 % (11.5-14.5); WHITE BLOOD COUNT 8.5 K/mm3 (4.0-10.0)
[2016-07-25 06:29] LABS: CALCIUM LEVEL 8.1 MG/DL (8.8-10.2); CREATININE FOR GFR 1.21 MG/DL (0.55-1.02); POTASSIUM SERUM 3.4 MEQ/L (3.5-5.1)
--- NOTE | 2016-07-25 07:06 | ECGEPIP ---
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
[2016-07-25 08:00] VITALS: BP 122/64
[2016-07-25] MEDS: GABAPENTIN 300 MG CAP PO SCH ×2 (08:38→20:42)
[2016-07-25] MEDS: LACTOBACILLUS ACIDOPHILUS CAP (BACID) PO SCH ×2 (08:39→13:00)
[2016-07-25] MEDS: ATORVASTATIN 10 MG TAB PO SCH (08:39)
[2016-07-25] MEDS: VITAMIN D 1,000 INTERNATIONAL UNITS TABLET PO SCH (08:40)
[2016-07-25] MEDS: ESCITALOPRAM OXALATE 10 MG TAB (LEXAPRO) PO SCH (08:40)
[2016-07-25] MEDS: ACETAMINOPHEN 500 MG TAB PO SCH ×2 (08:40→20:42)
[2016-07-25] MEDS: ASPIRIN 81 MG ENTERIC TAB PO SCH (08:41)
[2016-07-25] MEDS: PRIMIDONE 250 MG TAB PO SCH ×2 (08:41→20:43)
[2016-07-25] MEDS: ENOXAPARIN 100MG/1ML SYRINGE (J1650) SC SCH ×2 (08:44→20:42)
[2016-07-25] MEDS: LIDOCAINE 5% OINT 30 GM TOP SCH ×4 (08:44→20:44)
[2016-07-25] MEDS: NYSTATIN 100,000 UNITS/GM TOPICAL PWD 15 GM TOP SCH ×2 (08:44→20:44)
[2016-07-25] MEDS: SPIRONOLACTONE 25 MG TAB PO SCH (08:47)
[2016-07-25] MEDS: PROPRANOLOL 80 MG LA CAP PO SCH (08:47)
[2016-07-25] MEDS: traMADol 50 MG TAB PO SCH ×2 (08:48→20:43)
[2016-07-25] MEDS: MEROPENEM INJ 1 GM in D5W MINI-BAG PLUS 100 ML IV SCH ×2 (09:00→20:44)
[2016-07-25 12:00] VITALS: BP 131/56
--- NOTE | 2016-07-25 12:24 | IPNPDOC ---
Subjective Date Seen The patient was seen on 07/25/16. Subjective Chief Complaint/HPI The patient is a 85-year-old female admitted with a reason for visit of Severe Sepsis. Events since last encounter no complaints this morning, no fever or chills, no chest pain or shortness of breath , no abdominal pain , nausea or vomiting or diarrhea. Objective Physical Examination General Exam: Positive: Cooperative Eye Exam: Positive: Conjunctiva & lids normal, EOMI, PERRLA, Negative: Sclera icteric ENT Exam: Positive: Atraumatic, Tongue Midline (fissured), Negative: Mucous membr. moist/pink Neck Exam: Positive: Supple, Negative: JVD, Lymphadenopathy, thyromegaly Chest Exam: Positive: Clear to auscultation, Normal air movement Heart Exam: Positive: Normal S1, Normal S2, Rate Normal, Regular Rhythm Telemetry: Positive: No significant arrhythmia Abdomen Exam: Positive: Normal bowel sounds, Soft, Tenderness Extremity Exam: Positive: Edema, Normal pulses, Swelling, Negative: Clubbing, Cyanosis Neuro Exam: Negative: Normal Speech Assessment /Plan Problems (1) NSTEMI (non-ST elevated myocardial infarction) Status: Acute Problem Text: could be secondary to sepsis or primary due to coronary artery plaquing. Pateint did not want cardiac catheterization only wanted medical therapy. will continue with lovenox 90 bid , and asa. consulted cardiology patient DNR and DNI . (2) Severe sepsis Status: Acute Problem Text: Likely secondary to diagnosis of HCAP Start the following - Vancomycin - Meropenem Obtain the following - Blood cultures - MRSA screen - Strep throat cultures IVF @50 (3) Abdominal pain Status: Acute Problem Text: Likely a viscerosomatic reflex secondary to pneumonia CT abdomen and pelvis did not yield any significant findings Control pain Rx IV Zofran for nausea (4) Hypothyroid Status: Chronic Problem Text: Continue current home medication - Synthroid (5) Tremor Status: Chronic Problem Text: Continue home medication - Primidone (6) Polyneuropathy Status: Chronic Problem Text: Continue home medication - Gabapentin (7) Colitis Status: Chronic Problem Text: Continue home medications for diarrhea and constipation - Imodium - Bacid - Fleet enema - Milk of magnesia - Dulcolax - Mylanta (8) Depression Status: Chronic Problem Text: Continue home medication - Lexapro (9) Vitamin D deficiency Status: Chronic Problem Text: Continue home medication - vitamin D supplementation (10) Chronic pain Status: Chronic Problem Text: Continue the following home medications - Tramadol - Lidocaine ointment - Tylenol (11) Diverticulosis Status: Chronic (12) Diastolic CHF Status: Chronic Problem Text: will continue with spironolactone will restart torsamide. (13) Pulmonary hypertension Status: Chronic Problem Text: with chronic right sided heart failure will continue with diuretics. (14) CKD (chronic kidney disease), stage III Status: Chronic Response to Treatment: Stable Problem Text: will continue to monitor (15) Hypertension Status: Chronic Problem Text: with hypertensive heart disease. continue losartan , propranolol (16) Herpes simplex Status: Chronic (17) Macular degeneration Status: Chronic Plan/VTE VTE Prophylaxis Ordered?: Yes (Lovenox 30mg SC daily) Plan/Urinary Catheter Reason for insertion/continuin: Critical Pt monitoring Plan IVF: Continue Diet: Continue Current Activity: Continue Current Diagnostics: Check Labs, Repeat Labs in AM, Obtain Cultures Anticipated Discharge: Assisted Living VS, I&O, 24H, [facility] Vital Signs/I&O Vital Signs Date Time Temp Pulse Resp B/P Pulse Ox O2 Delivery O2 Flow Rate FiO2 07/25/16 08:48 18 07/25/16 08:47 66 122/64 07/25/16 08:30 Nasal Cannula 3.0 07/25/16 08:00 96.9 98 I&O- Last 24 Hours up to 6 AM 07/25/16 06:00 Intake Total 1830 ml Output Total 975 ml Balance 855 ml Laboratory Data 24H LABS Laboratory Tests 2 07/24/16 12:45: Anion Gap 9, Blood Urea Nitrogen 19H, Creatinine 1.07H, Sodium Level 142, Potassium Level 3.9, Chloride Level 100, Carbon Dioxide Level 33H, Calcium Level 8.5L, Glomerular Filtration Rate 51.9 07/25/16 05:12: Anion Gap 8, Blood Urea Nitrogen 21H, Creatinine 1.21H, Sodium Level 139, Potassium Level 3.4L, Chloride Level 99, Carbon Dioxide Level 32, Calcium Level 8.1L, Glomerular Filtration Rate 45.0, Triglycerides Level 365H, Cholesterol Level 202H, HDL Cholesterol 42, LDL Cholesterol 87.0, Cholesterol/HDL Ratio 4.809, Non-HDL Cholesterol (LDL + VLDL) 160 07/25/16 07:05: Lactic Acid (Sepsis) 1.3, Troponin I 0.80#H CBC/BMP Laboratory Tests 07/24/16 12:45 Calcium Level 8.5 L 07/25/16 05:12 Calcium Level 8.1 L, Red Blood Count 3.40 L, Mean Corpuscular Volume 96.0, Mean Corpuscular Hemoglobin 31.6, Mean Corpuscular Hemoglobin Concent 32.9, Red Cell Distribution Width 14.1 Microbiology Microbiology 07/24/16 Blood Culture - Preliminary, Resulted No growth after 24 hours . All specim... 07/23/16 Blood Culture - Preliminary, Resulted No growth after 24 hours . All specim... 07/24/16 Group A Streptococcus Screen (JOCELYNE) - Final, Complete 07/24/16 Group A Streptococcus Screen (JOCELYNE) - Final, Complete 07/24/16 MRSA Screen - Final, Complete 07/23/16 Influenza Virus Type A Antigen - Final, Complete 07/23/16 Influenza Virus Type B Antigen - Final, Complete 07/23/16 Urine Culture - Final, Complete LOLA GIL MD Jul 25, 2016 12:24
[2016-07-25] MEDS: POTASSIUM CHLORIDE 10 MEQ SR TABLET PO SCH ×2 (15:32→20:43)
[2016-07-25 16:00] VITALS: BP 120/59
[2016-07-25] MEDS: VANCOMYCIN HCL 1,000 MG, VIAL MATE ADAPTER 1 EACH in D5W 250 ML IV SCH (17:27)
[2016-07-25] MEDS: TORSEMIDE (DEMADEX) 50 MG PER 1/2 TAB PO SCH (18:24)
[2016-07-25 20:27] VITALS: BP 133/67
[2016-07-25] MEDS: LOSARTAN 50 MG TAB PO SCH (20:42)
[2016-07-25 23:59] VITALS: BP 107/58
[2016-07-26 04:29] VITALS: BP 130/71
[2016-07-26 06:16] LABS: MEAN CORPUSCULAR HEMOGLOBIN 31.6 pg (27.0-33.0); MEAN CORPUSCULAR HGB CONC 33.1 g/dl (32.0-36.5); MEAN CORPUSCULAR VOLUME 95.4 fl (80.0-96.0); RED CELL DISTRIBUTION WIDTH 14.2 % (11.5-14.5)
[2016-07-26 06:27] LABS: CALCIUM LEVEL 8.3 MG/DL (8.8-10.2); CREATININE FOR GFR 1.14 MG/DL (0.55-1.02); GLOMERULAR FILTRATION RATE 48.2 (>32); POTASSIUM SERUM 3.9 MEQ/L (3.5-5.1)
[2016-07-26] MEDS: SLF 3 ML SYR IV SCH ×3 (06:31→22:05)
[2016-07-26] MEDS: LEVOTHYROXINE 0.137 MG TAB (137MCG) PO SCH (06:31)
[2016-07-26] MEDS: ACETAMINOPHEN 500 MG TAB PO PRN (06:31)
[2016-07-26 07:10] VITALS: BP 143/73
[2016-07-26] MEDS: traMADol 50 MG TAB PO SCH ×2 (09:00→22:04)
[2016-07-26] MEDS: NYSTATIN 100,000 UNITS/GM TOPICAL PWD 15 GM TOP SCH ×2 (09:00→22:06)
[2016-07-26] MEDS: GABAPENTIN 300 MG CAP PO SCH ×2 (09:32→22:02)
[2016-07-26] MEDS: PROPRANOLOL 80 MG LA CAP PO SCH (09:32)
[2016-07-26] MEDS: ACETAMINOPHEN 500 MG TAB PO SCH ×2 (09:33→22:03)
[2016-07-26] MEDS: VITAMIN D 1,000 INTERNATIONAL UNITS TABLET PO SCH (09:33)
[2016-07-26] MEDS: PRIMIDONE 250 MG TAB PO SCH ×2 (09:33→22:01)
[2016-07-26] MEDS: ATORVASTATIN 10 MG TAB PO SCH (09:33)
[2016-07-26] MEDS: POTASSIUM CHLORIDE 10 MEQ SR TABLET PO SCH ×2 (09:33→22:01)
[2016-07-26] MEDS: LACTOBACILLUS ACIDOPHILUS CAP (BACID) PO SCH ×2 (09:34→12:39)
[2016-07-26] MEDS: ESCITALOPRAM OXALATE 10 MG TAB (LEXAPRO) PO SCH (09:34)
[2016-07-26] MEDS: TORSEMIDE (DEMADEX) 50 MG PER 1/2 TAB PO SCH ×2 (09:34→17:55)
[2016-07-26] MEDS: SPIRONOLACTONE 25 MG TAB PO SCH (09:34)
[2016-07-26] MEDS: ASPIRIN 81 MG ENTERIC TAB PO SCH (09:34)
[2016-07-26] MEDS: ENOXAPARIN 100MG/1ML SYRINGE (J1650) SC SCH ×2 (09:36→22:02)
[2016-07-26] MEDS: MEROPENEM INJ 1 GM in D5W MINI-BAG PLUS 100 ML IV SCH ×2 (09:36→22:05)
[2016-07-26 12:00] VITALS: BP 138/68
--- NOTE | 2016-07-26 12:26 | IPNPDOC ---
Subjective Date Seen The patient was seen on 07/26/16. Subjective Chief Complaint/HPI The patient is a 85-year-old female admitted with a reason for visit of Severe Sepsis. Events since last encounter no complaints this morning feels, good , did not eat much breakfast however she tells me that she is not a bid breakfast eater anyway. Objective Physical Examination General Exam: Positive: Cooperative Eye Exam: Positive: Conjunctiva & lids normal, EOMI, PERRLA, Negative: Sclera icteric ENT Exam: Positive: Atraumatic, Tongue Midline (fissured), Negative: Mucous membr. moist/pink Neck Exam: Positive: Supple, Negative: JVD, Lymphadenopathy, thyromegaly Chest Exam: Positive: Clear to auscultation, Normal air movement Heart Exam: Positive: Normal S1, Normal S2, Rate Normal, Regular Rhythm Telemetry: Positive: No significant arrhythmia Abdomen Exam: Positive: Normal bowel sounds, Soft, Tenderness Extremity Exam: Positive: Edema, Normal pulses, Swelling, Negative: Clubbing, Cyanosis Neuro Exam: Negative: Normal Speech Assessment /Plan Problems (1) NSTEMI (non-ST elevated myocardial infarction) Status: Acute Problem Text: could be secondary to sepsis or primary due to coronary artery plaquing. Pateint did not want cardiac catheterization only wanted medical therapy. will continue with lovenox 90 bid , and asa. consulted cardiology patient DNR and DNI . (2) Severe sepsis Status: Resolved Problem Text: Likely secondary to diagnosis of HCAP Start the following - Vancomycin - Meropenem Obtain the following - Blood cultures - MRSA screen - Strep throat cultures IVF @50 (3) Abdominal pain Status: Acute Problem Text: Likely a viscerosomatic reflex secondary to pneumonia CT abdomen and pelvis did not yield any significant findings Control pain Rx IV Zofran for nausea (4) Hypothyroid Status: Chronic Problem Text: Continue current home medication - Synthroid (5) Tremor Status: Chronic Problem Text: Continue home medication - Primidone (6) Polyneuropathy Status: Chronic Problem Text: Continue home medication - Gabapentin (7) Colitis Status: Chronic Problem Text: Continue home medications for diarrhea and constipation - Imodium - Bacid - Fleet enema - Milk of magnesia - Dulcolax - Mylanta (8) Depression Status: Chronic Problem Text: Continue home medication - Lexapro (9) Vitamin D deficiency Status: Chronic Problem Text: Continue home medication - vitamin D supplementation (10) Chronic pain Status: Chronic Problem Text: Continue the following home medications - Tramadol - Lidocaine ointment - Tylenol (11) Diverticulosis Status: Chronic (12) Diastolic CHF Status: Chronic Problem Text: will continue with spironolactone will restart torsamide. seems a little congested so will give 1 dose of iv lasix. (13) Pulmonary hypertension Status: Chronic Problem Text: with chronic right sided heart failure will continue with diuretics. (14) CKD (chronic kidney disease), stage III Status: Chronic Response to Treatment: Stable Problem Text: will continue to monitor (15) Hypertension Status: Chronic Problem Text: with hypertensive heart disease. continue losartan , propranolol (16) Herpes simplex Status: Chronic (17) Macular degeneration Status: Chronic Plan/VTE VTE Prophylaxis Ordered?: Yes (Lovenox 30mg SC daily) Plan/Urinary Catheter Reason for insertion/continuin: Critical Pt monitoring Plan IVF: Continue Diet: Continue Current Activity: Continue Current Diagnostics: Check Labs, Repeat Labs in AM, Obtain Cultures Anticipated Discharge: Assisted Living VS, I&O, 24H, [facility] Vital Signs/I&O Vital Signs Date Time Temp Pulse Resp B/P Pulse Ox O2 Delivery O2 Flow Rate FiO2 07/26/16 09:32 72 143/73 07/26/16 09:00 22 Room Air 07/26/16 07:10 97.1 92 07/26/16 04:29 2.0 I&O- Last 24 Hours up to 6 AM 07/26/16 05:59 Intake Total 840 ml Output Total 1275 ml Balance -435 ml Laboratory Data 24H LABS Laboratory Tests 2 07/26/16 04:59: Anion Gap 10, Blood Urea Nitrogen 21H, Creatinine 1.14H, Sodium Level 138, Potassium Level 3.9, Chloride Level 97L, Carbon Dioxide Level 31, Calcium Level 8.3L, Glomerular Filtration Rate 48.2 CBC/BMP Laboratory Tests 07/26/16 04:59 Calcium Level 8.3 L, Red Blood Count 3.52 L, Mean Corpuscular Volume 95.4, Mean Corpuscular Hemoglobin 31.6, Mean Corpuscular Hemoglobin Concent 33.1, Red Cell Distribution Width 14.2 Microbiology Microbiology 07/24/16 Blood Culture - Preliminary, Resulted No Growth after 48 hours. All Specime... 07/23/16 Blood Culture - Preliminary, Resulted No Growth after 48 hours. All Specime... 07/24/16 Group A Streptococcus Screen (JOCELYNE) - Final, Complete 07/24/16 Group A Streptococcus Screen (JOCELYNE) - Final, Complete 07/24/16 MRSA Screen - Final, Complete 07/23/16 Influenza Virus Type A Antigen - Final, Complete 07/23/16 Influenza Virus Type B Antigen - Final, Complete 07/23/16 Urine Culture - Final, Complete LOLA GIL MD Jul 26, 2016 12:26
[2016-07-26] MEDS ORDERED: FUROSEMIDE 20 MG/2 ML VIAL (J1940) IV ONE (12:30)
[2016-07-26] MEDS: LIDOCAINE 5% OINT 30 GM TOP SCH ×4 (12:40→22:08)
--- NOTE | 2016-07-26 13:29 | PHACANCOPD ---
PHARMACY VANCOMYCIN DOSING Pt Demographics Demographics Patient Age:85 , Weight:95.600 , Gender: female Adjusted Body Weight Date: 07/24/16, Adjusted Body Weight: [67.6] Kg Vancomycin Vancomycin indication: SEPSIS,PNEUMONIA Vancomycin Target Ranges: 10-20 mcg/ml Vancomycin Load Y/N: No Load Dose Date Time Vancomycin Load Dose: Date: Time: Vancomycin Dose Date: 07/24/16. Current Vancomycin Dose: Intermittent Dosing?: No Labs Micro Microbiology 07/24/16 Blood Culture - Preliminary, Resulted No Growth after 48 hours. All Specime... 07/23/16 Blood Culture - Preliminary, Resulted No Growth after 48 hours. All Specime... 07/24/16 Group A Streptococcus Screen (JOCELYNE) - Final, Complete 07/24/16 Group A Streptococcus Screen (JOCELYNE) - Final, Complete 07/24/16 MRSA Screen - Final, Complete 07/23/16 Influenza Virus Type A Antigen - Final, Complete 07/23/16 Influenza Virus Type B Antigen - Final, Complete 07/23/16 Urine Culture - Final, Complete Creatinine Clearance Date:07/24/16. Creatinine Clearance: [34]CALCULATED. Pending Labs VANCOMYCIN TROUGH DUE 07/25@1800 Assessment and Plan Maintaining Current Dose?: Yes Reason for dose change: No Dose Change Pharmacist Note Pharmacist Note 07/26/16: Vanco trough scheduled yesterday was not drawn. I have scheduled another vanco trough to be drawn tonight, 07/26/16 @1800, prior to the 4th dose. Scr is improved from admission. We will continue to monitor and make adjustments accordingly. Date: 07/24/16. Pharmacist note:85 YOF ADMITTED W/SEPSIS,PNEUMONIA:Begun on Meropenem 1 G IV Q12H and Vancomycin per consult:Vancomycin 1 G@0100,then continue w/1 gram IV Q24H@1900: trough ordered prior to 3rd dose on 07/25@1800: will continue to monitor SCR and levels RANDOLPH [facility]RY [facility] Jul 26, 2016 13:29
[2016-07-26 16:00] VITALS: BP 137/81
[2016-07-26] MEDS: VANCOMYCIN HCL 1,000 MG, VIAL MATE ADAPTER 1 EACH in D5W 250 ML IV SCH (17:55)
[2016-07-26 20:00] VITALS: BP 171/87; PULSE 72
[2016-07-26] MEDS: LOSARTAN 50 MG TAB PO SCH (22:04)
[2016-07-26 23:59] VITALS: BP 142/80
[2016-07-27] VITALS (7 sets, daily range): BP systolic 128–166; BP diastolic 67–92; PULSE 71–72
[2016-07-27 05:11] LABS: WHITE BLOOD COUNT 7.4 K/mm3 (4.0-10.0)
[2016-07-27 05:12] LABS: MEAN CORPUSCULAR HEMOGLOBIN 31.4 pg (27.0-33.0); MEAN CORPUSCULAR HGB CONC 33.4 g/dl (32.0-36.5); MEAN CORPUSCULAR VOLUME 93.9 fl (80.0-96.0); RED CELL DISTRIBUTION WIDTH 13.6 % (11.5-14.5)
[2016-07-27 05:25] LABS: ANION GAP 9 MEQ/L (8-16); BLOOD UREA NITROGEN 17 MG/DL (7-18); CALCIUM LEVEL 8.4 MG/DL (8.8-10.2); CARBON DIOXIDE LEVEL 33 MEQ/L (21-32); CHLORIDE LEVEL 98 MEQ/L (98-107); CREATININE FOR GFR 0.94 MG/DL (0.55-1.02); GLOMERULAR FILTRATION RATE > 60.0 (>32); GLUCOSE, FASTING 196 MG/DL (83-110); POTASSIUM SERUM 3.5 MEQ/L (3.5-5.1); SODIUM LEVEL 140 MEQ/L (136-145)
[2016-07-27] MEDS: LEVOTHYROXINE 0.137 MG TAB (137MCG) PO SCH (05:42)
[2016-07-27] MEDS: SLF 3 ML SYR IV SCH ×3 (05:42→21:18)
[2016-07-27 08:02] LABS: ALBUMIN 2.6 GM/DL (3.2-5.2); ALKALINE PHOSPHATASE 137 U/L (45-117); ALT/SGPT 26 U/L (12-78); AST/SGOT 31 U/L (15-37); BILIRUBIN,DIRECT < 0.1 MG/DL (0.0-0.2); BILIRUBIN,TOTAL 0.3 MG/DL (0.2-1.0); TOTAL PROTEIN 6.9 GM/DL (6.4-8.2)
[2016-07-27] MEDS: ESCITALOPRAM OXALATE 10 MG TAB (LEXAPRO) PO SCH (10:31)
[2016-07-27] MEDS: MEROPENEM INJ 1 GM in D5W MINI-BAG PLUS 100 ML IV SCH ×2 (10:31→21:15)
[2016-07-27] MEDS: LACTOBACILLUS ACIDOPHILUS CAP (BACID) PO SCH ×2 (10:31→13:15)
[2016-07-27] MEDS: PROPRANOLOL 80 MG LA CAP PO SCH (10:32)
[2016-07-27] MEDS: TORSEMIDE (DEMADEX) 50 MG PER 1/2 TAB PO SCH ×2 (10:32→17:42)
[2016-07-27] MEDS: PRIMIDONE 250 MG TAB PO SCH ×2 (10:33→21:18)
[2016-07-27] MEDS: VITAMIN D 1,000 INTERNATIONAL UNITS TABLET PO SCH (10:33)
[2016-07-27] MEDS: ATORVASTATIN 10 MG TAB PO SCH (10:34)
[2016-07-27] MEDS: ASPIRIN 81 MG ENTERIC TAB PO SCH (10:34)
[2016-07-27] MEDS: SPIRONOLACTONE 25 MG TAB PO SCH (10:34)
[2016-07-27] MEDS: POTASSIUM CHLORIDE 10 MEQ SR TABLET PO SCH ×2 (10:34→21:17)
[2016-07-27] MEDS: GABAPENTIN 300 MG CAP PO SCH ×2 (10:35→21:17)
[2016-07-27] MEDS: ACETAMINOPHEN 500 MG TAB PO SCH ×2 (10:36→21:18)
[2016-07-27] MEDS: traMADol 50 MG TAB PO SCH ×2 (10:37→21:17)
[2016-07-27] MEDS: ENOXAPARIN 100MG/1ML SYRINGE (J1650) SC SCH ×2 (10:38→21:17)
[2016-07-27] MEDS: NYSTATIN 100,000 UNITS/GM TOPICAL PWD 15 GM TOP SCH ×2 (11:00→21:19)
[2016-07-27] MEDS: LIDOCAINE 5% OINT 30 GM TOP SCH ×4 (11:01→21:19)
--- NOTE | 2016-07-27 12:53 | IPNPDOC ---
Subjective Date Seen The patient was seen on 07/27/16. Subjective Chief Complaint/HPI The patient is a 85-year-old female admitted with a reason for visit of Severe Sepsis. Events since last encounter no complaints this am feeling well. Objective Physical Examination General Exam: Positive: Cooperative Eye Exam: Positive: Conjunctiva & lids normal, EOMI, PERRLA, Negative: Sclera icteric ENT Exam: Positive: Atraumatic, Tongue Midline (fissured), Negative: Mucous membr. moist/pink Neck Exam: Positive: Supple, Negative: JVD, Lymphadenopathy, thyromegaly Chest Exam: Positive: Clear to auscultation, Normal air movement Heart Exam: Positive: Normal S1, Normal S2, Rate Normal, Regular Rhythm Telemetry: Positive: No significant arrhythmia Abdomen Exam: Positive: Normal bowel sounds, Soft, Tenderness Extremity Exam: Positive: Edema, Normal pulses, Swelling, Negative: Clubbing, Cyanosis Neuro Exam: Negative: Normal Speech Assessment /Plan Problems (1) NSTEMI (non-ST elevated myocardial infarction) Status: Acute Problem Text: could be secondary to sepsis or primary due to coronary artery plaquing. Pateint did not want cardiac catheterization only wanted medical therapy. will continue with lovenox 90 bid , and asa. consulted cardiology patient DNR and DNI . (2) Severe sepsis Status: Resolved Problem Text: Likely secondary to diagnosis of HCAP Start the following - Vancomycin - Meropenem Obtain the following - Blood cultures - MRSA screen - Strep throat cultures IVF @50 (3) Abdominal pain Status: Acute Problem Text: Likely a viscerosomatic reflex secondary to pneumonia CT abdomen and pelvis did not yield any significant findings Control pain Rx IV Zofran for nausea (4) Hypothyroid Status: Chronic Problem Text: Continue current home medication - Synthroid (5) Tremor Status: Chronic Problem Text: Continue home medication - Primidone (6) Polyneuropathy Status: Chronic Problem Text: Continue home medication - Gabapentin (7) Colitis Status: Chronic Problem Text: Continue home medications for diarrhea and constipation - Imodium - Bacid - Fleet enema - Milk of magnesia - Dulcolax - Mylanta (8) Depression Status: Chronic Problem Text: Continue home medication - Lexapro (9) Vitamin D deficiency Status: Chronic Problem Text: Continue home medication - vitamin D supplementation (10) Chronic pain Status: Chronic Problem Text: Continue the following home medications - Tramadol - Lidocaine ointment - Tylenol (11) Diverticulosis Status: Chronic (12) Diastolic CHF Status: Chronic Problem Text: will continue with spironolactone will restart torsamide. seems a little congested so will give 1 dose of iv lasix. (13) Pulmonary hypertension Status: Chronic Problem Text: with chronic right sided heart failure will continue with diuretics. (14) CKD (chronic kidney disease), stage III Status: Chronic Response to Treatment: Stable Problem Text: will continue to monitor (15) Hypertension Status: Chronic Problem Text: with hypertensive heart disease. continue losartan , propranolol (16) Herpes simplex Status: Chronic (17) Macular degeneration Status: Chronic Plan/VTE VTE Prophylaxis Ordered?: Yes (Lovenox 30mg SC daily) Plan/Urinary Catheter Reason for insertion/continuin: Critical Pt monitoring Plan IVF: Continue Diet: Continue Current Activity: Continue Current Diagnostics: Check Labs, Repeat Labs in AM, Obtain Cultures Anticipated Discharge: Assisted Living VS, I&O, 24H, [facility] Vital Signs/I&O Vital Signs Date Time Temp Pulse Resp B/P Pulse Ox O2 Delivery O2 Flow Rate FiO2 07/27/16 11:38 97.9 74 18 154/82 90 Room Air 07/26/16 04:29 2.0 I&O- Last 24 Hours up to 6 AM 07/27/16 06:00 Intake Total 780 ml Output Total 600 ml Balance 180 ml Laboratory Data 24H LABS Laboratory Tests 2 07/26/16 17:43: Vancomycin Level Trough 15.8 07/27/16 04:47: Aspartate Amino Transf (AST/SGOT) 31, Alanine Aminotransferase (ALT/SGPT) 26, Alkaline Phosphatase 137H, Total Bilirubin 0.3, Direct Bilirubin < 0.1, Albumin 2.6L, Albumin/Globulin Ratio 0.60L, Anion Gap 9, Calcium Level 8.4L, Glomerular Filtration Rate > 60.0, Total Protein 6.9, Troponin I 0.44#H CBC/BMP Laboratory Tests 07/27/16 04:47 Red Blood Count 3.83 L, Mean Corpuscular Volume 93.9, Mean Corpuscular Hemoglobin 31.4, Mean Corpuscular Hemoglobin Concent 33.4, Red Cell Distribution Width 13.6 Microbiology Microbiology 07/24/16 Blood Culture - Preliminary, Resulted No Growth after 72 hours. All specime... 07/23/16 Blood Culture - Preliminary, Resulted No Growth after 72 hours. All specime... 07/24/16 Group A Streptococcus Screen (JOCELYNE) - Final, Complete 07/24/16 Group A Streptococcus Screen (JOCELYNE) - Final, Complete 07/24/16 MRSA Screen - Final, Complete 07/23/16 Influenza Virus Type A Antigen - Final, Complete 07/23/16 Influenza Virus Type B Antigen - Final, Complete 07/23/16 Urine Culture - Final, Complete LOLA GIL MD Jul 27, 2016 12:53
[2016-07-27] MEDS: VANCOMYCIN HCL 1,000 MG, VIAL MATE ADAPTER 1 EACH in D5W 250 ML IV SCH (18:33)
[2016-07-27] MEDS: SALIVA SUBSTITUTE(MOUTHKOTE) BTL MT PRN (20:33)
[2016-07-27] MEDS: LOSARTAN 50 MG TAB PO SCH (21:16)
[2016-07-28] VITALS (7 sets, daily range): BP systolic 133–184; BP diastolic 79–98
[2016-07-28] MEDS: LEVOTHYROXINE 0.137 MG TAB (137MCG) PO SCH (05:38)
[2016-07-28] MEDS: SLF 3 ML SYR IV SCH ×3 (05:39→20:49)
[2016-07-28 06:24] LABS: MEAN CORPUSCULAR HEMOGLOBIN 32.3 pg (27.0-33.0); MEAN CORPUSCULAR VOLUME 95.1 fl (80.0-96.0); RED CELL DISTRIBUTION WIDTH 13.8 % (11.5-14.5); WHITE BLOOD COUNT 6.4 K/mm3 (4.0-10.0)
[2016-07-28 06:49] LABS: ANION GAP 6 MEQ/L (8-16); BLOOD UREA NITROGEN 17 MG/DL (7-18); CALCIUM LEVEL 8.6 MG/DL (8.8-10.2); CARBON DIOXIDE LEVEL 34 MEQ/L (21-32); CHLORIDE LEVEL 100 MEQ/L (98-107); CREATININE FOR GFR 0.85 MG/DL (0.55-1.02); GLOMERULAR FILTRATION RATE > 60.0 (>32); GLUCOSE, FASTING 149 MG/DL (83-110); POTASSIUM SERUM 3.6 MEQ/L (3.5-5.1); SODIUM LEVEL 140 MEQ/L (136-145)
[2016-07-28] MEDS: POTASSIUM CHLORIDE 10 MEQ SR TABLET PO SCH ×2 (09:31→20:46)
[2016-07-28] MEDS: PROPRANOLOL 80 MG LA CAP PO SCH (09:31)
[2016-07-28] MEDS: ACETAMINOPHEN 500 MG TAB PO SCH ×2 (09:32→20:47)
[2016-07-28] MEDS: VITAMIN D 1,000 INTERNATIONAL UNITS TABLET PO SCH (09:32)
[2016-07-28] MEDS: MEROPENEM INJ 1 GM in D5W MINI-BAG PLUS 100 ML IV SCH ×2 (09:32→20:48)
[2016-07-28] MEDS: SPIRONOLACTONE 25 MG TAB PO SCH (09:32)
[2016-07-28] MEDS: GABAPENTIN 300 MG CAP PO SCH ×2 (09:32→20:46)
[2016-07-28] MEDS: ASPIRIN 81 MG ENTERIC TAB PO SCH (09:32)
[2016-07-28] MEDS: traMADol 50 MG TAB PO SCH ×2 (09:33→20:48)
[2016-07-28] MEDS: ESCITALOPRAM OXALATE 10 MG TAB (LEXAPRO) PO SCH (09:33)
[2016-07-28] MEDS: LACTOBACILLUS ACIDOPHILUS CAP (BACID) PO SCH ×2 (09:33→13:56)
[2016-07-28] MEDS: TORSEMIDE (DEMADEX) 50 MG PER 1/2 TAB PO SCH ×2 (09:33→16:31)
[2016-07-28] MEDS: PRIMIDONE 250 MG TAB PO SCH ×2 (09:33→20:46)
[2016-07-28] MEDS: ATORVASTATIN 10 MG TAB PO SCH (09:33)
[2016-07-28] MEDS: NYSTATIN 100,000 UNITS/GM TOPICAL PWD 15 GM TOP SCH ×2 (09:34→20:40)
[2016-07-28] MEDS: LIDOCAINE 5% OINT 30 GM TOP SCH ×4 (09:34→20:40)
[2016-07-28] MEDS: ENOXAPARIN 100MG/1ML SYRINGE (J1650) SC SCH (09:35)
--- NOTE | 2016-07-28 10:48 | IPNPDOC ---
Subjective Date Seen The patient was seen on 07/28/16. Subjective Chief Complaint/HPI The patient is a 85-year-old female admitted with a reason for visit of Severe Sepsis. Events since last encounter No complaints, no issues overnight. Objective Physical Examination General Exam: Positive: Cooperative Eye Exam: Positive: Conjunctiva & lids normal, EOMI, PERRLA, Negative: Sclera icteric ENT Exam: Positive: Atraumatic, Tongue Midline (fissured), Negative: Mucous membr. moist/pink Neck Exam: Positive: Supple, Negative: JVD, Lymphadenopathy, thyromegaly Chest Exam: Positive: Clear to auscultation, Normal air movement Heart Exam: Positive: Normal S1, Normal S2, Rate Normal, Regular Rhythm Telemetry: Positive: No significant arrhythmia Abdomen Exam: Positive: Normal bowel sounds, Soft, Tenderness Extremity Exam: Positive: Edema, Normal pulses, Swelling, Negative: Clubbing, Cyanosis Neuro Exam: Negative: Normal Speech Assessment /Plan Problems (1) NSTEMI (non-ST elevated myocardial infarction) Status: Acute Problem Text: could be secondary to sepsis or primary due to coronary artery plaquing. Pateint did not want cardiac catheterization only wanted medical therapy. will continue with lovenox 90 bid , and asa. consulted cardiology patient DNR and DNI . (2) Severe sepsis Status: Resolved Problem Text: Likely secondary to diagnosis of HCAP Start the following - Vancomycin - Meropenem Obtain the following - Blood cultures - MRSA screen - Strep throat cultures IVF @50 (3) Abdominal pain Status: Acute Problem Text: Likely a viscerosomatic reflex secondary to pneumonia CT abdomen and pelvis did not yield any significant findings Control pain Rx IV Zofran for nausea (4) Hypothyroid Status: Chronic Problem Text: Continue current home medication - Synthroid (5) Tremor Status: Chronic Problem Text: Continue home medication - Primidone (6) Polyneuropathy Status: Chronic Problem Text: Continue home medication - Gabapentin (7) Colitis Status: Chronic Problem Text: Continue home medications for diarrhea and constipation - Imodium - Bacid - Fleet enema - Milk of magnesia - Dulcolax - Mylanta (8) Depression Status: Chronic Problem Text: Continue home medication - Lexapro (9) Vitamin D deficiency Status: Chronic Problem Text: Continue home medication - vitamin D supplementation (10) Chronic pain Status: Chronic Problem Text: Continue the following home medications - Tramadol - Lidocaine ointment - Tylenol (11) Diverticulosis Status: Chronic (12) Diastolic CHF Status: Chronic Problem Text: will continue with spironolactone will restart torsamide. seems a little congested so will give 1 dose of iv lasix. (13) Pulmonary hypertension Status: Chronic Problem Text: with chronic right sided heart failure will continue with diuretics. (14) CKD (chronic kidney disease), stage III Status: Chronic Response to Treatment: Stable Problem Text: will continue to monitor (15) Hypertension Status: Chronic Problem Text: with hypertensive heart disease. continue losartan , propranolol (16) Herpes simplex Status: Chronic (17) Macular degeneration Status: Chronic Plan/VTE VTE Prophylaxis Ordered?: Yes (Lovenox 30mg SC daily) Plan/Urinary Catheter Reason for insertion/continuin: Critical Pt monitoring Plan IVF: Continue Diet: Continue Current Activity: Continue Current Diagnostics: Check Labs, Repeat Labs in AM, Obtain Cultures Anticipated Discharge: Assisted Living VS, I&O, 24H, [facility] Vital Signs/I&O Vital Signs Date Time Temp Pulse Resp B/P Pulse Ox O2 Delivery O2 Flow Rate FiO2 07/28/16 10:29 158/90 07/28/16 10:00 95.8 73 19 91 Room Air 07/26/16 04:29 2.0 I&O- Last 24 Hours up to 6 AM 07/28/16 06:00 Intake Total 1480 ml Output Total 500 ml Balance 980 ml Laboratory Data 24H LABS Laboratory Tests 2 07/28/16 05:37: Anion Gap 6L, Blood Urea Nitrogen 17, Creatinine 0.85, Sodium Level 140, Potassium Level 3.6, Chloride Level 100, Carbon Dioxide Level 34H, Calcium Level 8.6L, Glomerular Filtration Rate > 60.0 CBC/BMP Laboratory Tests 07/28/16 05:37 Calcium Level 8.6 L, Red Blood Count 3.77 L, Mean Corpuscular Volume 95.1, Mean Corpuscular Hemoglobin 32.3, Mean Corpuscular Hemoglobin Concent 34.0, Red Cell Distribution Width 13.8 Microbiology Microbiology 07/24/16 Blood Culture - Preliminary, Resulted No Growth after 72 hours. All specime... 07/23/16 Blood Culture - Preliminary, Resulted No Growth after 72 hours. All specime... 07/24/16 Group A Streptococcus Screen (JOCELYNE) - Final, Complete 07/24/16 Group A Streptococcus Screen (JOCELYNE) - Final, Complete 07/24/16 MRSA Screen - Final, Complete 07/23/16 Influenza Virus Type A Antigen - Final, Complete 07/23/16 Influenza Virus Type B Antigen - Final, Complete 07/23/16 Urine Culture - Final, Complete LOLA GIL MD Jul 28, 2016 10:48
[2016-07-28] MEDS: LIDOCAINE 5% (LIDODERM) PATCH TD SCH (16:31)
[2016-07-28] MEDS: VANCOMYCIN HCL 1,000 MG, VIAL MATE ADAPTER 1 EACH in D5W 250 ML IV SCH (18:30)
[2016-07-28] MEDS: **NOTE PATIENT COMMENT** MISC XX SCH (20:40)
[2016-07-28] MEDS: LOSARTAN 50 MG TAB PO SCH (20:47)
[2016-07-28] MEDS: ACETAMINOPHEN 500 MG TAB PO PRN (23:20)
[2016-07-29 02:00] VITALS: BP 148/64
[2016-07-29 06:00] VITALS: BP 170/60
[2016-07-29] MEDS: SLF 3 ML SYR IV SCH ×3 (06:22→22:01)
[2016-07-29] MEDS: LEVOTHYROXINE 0.137 MG TAB (137MCG) PO SCH (06:22)
[2016-07-29 06:42] LABS: MEAN CORPUSCULAR HEMOGLOBIN 31.9 pg (27.0-33.0); MEAN CORPUSCULAR HGB CONC 33.9 g/dl (32.0-36.5); MEAN CORPUSCULAR VOLUME 94.3 fl (80.0-96.0); RED CELL DISTRIBUTION WIDTH 13.7 % (11.5-14.5); WHITE BLOOD COUNT 8.6 K/mm3 (4.0-10.0)
[2016-07-29 06:58] LABS: ANION GAP 9 MEQ/L (8-16); BLOOD UREA NITROGEN 16 MG/DL (7-18); CALCIUM LEVEL 8.7 MG/DL (8.8-10.2); CARBON DIOXIDE LEVEL 33 MEQ/L (21-32); CHLORIDE LEVEL 96 MEQ/L (98-107); CREATININE FOR GFR 0.84 MG/DL (0.55-1.02); GLOMERULAR FILTRATION RATE > 60.0 (>32); GLUCOSE, FASTING 152 MG/DL (83-110); POTASSIUM SERUM 3.5 MEQ/L (3.5-5.1); SODIUM LEVEL 138 MEQ/L (136-145)
[2016-07-29 10:00] VITALS: BP 144/72
[2016-07-29] MEDS: ENOXAPARIN 30 MG/0.3 ML SYR (J1650) SC SCH (10:43)
[2016-07-29] MEDS: MEROPENEM INJ 1 GM in D5W MINI-BAG PLUS 100 ML IV SCH ×2 (10:43→22:01)
[2016-07-29] MEDS: ASPIRIN 81 MG ENTERIC TAB PO SCH (10:43)
[2016-07-29] MEDS: GABAPENTIN 300 MG CAP PO SCH ×2 (10:44→21:57)
[2016-07-29] MEDS: POTASSIUM CHLORIDE 10 MEQ SR TABLET PO SCH ×2 (10:44→21:57)
[2016-07-29] MEDS: TORSEMIDE (DEMADEX) 50 MG PER 1/2 TAB PO SCH ×2 (10:44→17:51)
[2016-07-29] MEDS: LACTOBACILLUS ACIDOPHILUS CAP (BACID) PO SCH ×2 (10:44→12:39)
[2016-07-29] MEDS: ESCITALOPRAM OXALATE 10 MG TAB (LEXAPRO) PO SCH (10:45)
[2016-07-29] MEDS: ACETAMINOPHEN 500 MG TAB PO SCH ×2 (10:45→21:57)
[2016-07-29] MEDS: PRIMIDONE 250 MG TAB PO SCH ×2 (10:45→21:57)
[2016-07-29] MEDS: traMADol 50 MG TAB PO SCH ×2 (10:46→21:58)
[2016-07-29] MEDS: VITAMIN D 1,000 INTERNATIONAL UNITS TABLET PO SCH (10:46)
[2016-07-29] MEDS: SPIRONOLACTONE 25 MG TAB PO SCH (10:47)
[2016-07-29] MEDS: ATORVASTATIN 10 MG TAB PO SCH (10:47)
[2016-07-29] MEDS: LIDOCAINE 5% OINT 30 GM TOP SCH ×4 (10:48→21:59)
[2016-07-29] MEDS: LIDOCAINE 5% (LIDODERM) PATCH TD SCH (10:48)
[2016-07-29] MEDS: NYSTATIN 100,000 UNITS/GM TOPICAL PWD 15 GM TOP SCH ×2 (10:48→21:59)
[2016-07-29] MEDS: PROPRANOLOL 80 MG LA CAP PO SCH (10:49)
--- NOTE | 2016-07-29 10:53 | IPNPDOC ---
Subjective Date Seen The patient was seen on 07/29/16. Subjective Chief Complaint/HPI The patient is a 85-year-old female admitted with a reason for visit of Severe Sepsis. Events since last encounter complaining of neck pain . she says she is unhappy as she is not getting adequate help when she pushes the call button. No fever or chills, no chest pain or shortness of breath , no abdominal pain or nausea or vomiting. Objective Physical Examination General Exam: Positive: Cooperative Eye Exam: Positive: Conjunctiva & lids normal, EOMI, PERRLA, Negative: Sclera icteric ENT Exam: Positive: Atraumatic, Tongue Midline (fissured), Negative: Mucous membr. moist/pink Neck Exam: Positive: Supple, Negative: JVD, Lymphadenopathy, thyromegaly Chest Exam: Positive: Clear to auscultation, Normal air movement Heart Exam: Positive: Normal S1, Normal S2, Rate Normal, Regular Rhythm Telemetry: Positive: No significant arrhythmia Abdomen Exam: Positive: Normal bowel sounds, Soft, Tenderness Extremity Exam: Positive: Edema, Normal pulses, Swelling, Negative: Clubbing, Cyanosis Neuro Exam: Negative: Normal Speech Assessment /Plan Problems (1) NSTEMI (non-ST elevated myocardial infarction) Status: Resolved Problem Text: could be secondary to sepsis or primary due to coronary artery plaquing. Pateint did not want cardiac catheterization only wanted medical therapy. will continue with lovenox 90 bid , and asa. consulted cardiology patient DNR and DNI . (2) Severe sepsis Status: Resolved Problem Text: Likely secondary to diagnosis of HCAP Start the following - Vancomycin - Meropenem Obtain the following - Blood cultures - MRSA screen - Strep throat cultures IVF @50 (3) Abdominal pain Status: Acute Problem Text: Likely a viscerosomatic reflex secondary to pneumonia CT abdomen and pelvis did not yield any significant findings Control pain Rx IV Zofran for nausea (4) Hypothyroid Status: Chronic Problem Text: Continue current home medication - Synthroid (5) Tremor Status: Chronic Problem Text: Continue home medication - Primidone (6) Polyneuropathy Status: Chronic Problem Text: Continue home medication - Gabapentin (7) Colitis Status: Chronic Problem Text: Continue home medications for diarrhea and constipation - Imodium - Bacid - Fleet enema - Milk of magnesia - Dulcolax - Mylanta (8) Depression Status: Chronic Problem Text: Continue home medication - Lexapro (9) Vitamin D deficiency Status: Chronic Problem Text: Continue home medication - vitamin D supplementation (10) Chronic pain Status: Chronic Problem Text: Continue the following home medications - Tramadol - Lidocaine ointment - Tylenol (11) Diverticulosis Status: Chronic (12) Diastolic CHF Status: Chronic Problem Text: will continue with spironolactone will restart torsamide. seems a little congested so will give 1 dose of iv lasix. (13) Pulmonary hypertension Status: Chronic Problem Text: with chronic right sided heart failure will continue with diuretics. (14) CKD (chronic kidney disease), stage III Status: Chronic Response to Treatment: Stable Problem Text: will continue to monitor (15) Hypertension Status: Chronic Problem Text: with hypertensive heart disease. continue losartan , propranolol (16) Herpes simplex Status: Chronic (17) Macular degeneration Status: Chronic Plan/VTE VTE Prophylaxis Ordered?: Yes (Lovenox 30mg SC daily) Plan/Urinary Catheter Reason for insertion/continuin: Critical Pt monitoring Plan IVF: Continue Diet: Continue Current Activity: Continue Current Diagnostics: Check Labs, Repeat Labs in AM, Obtain Cultures Anticipated Discharge: Assisted Living VS, I&O, 24H, [facility] Vital Signs/I&O Vital Signs Date Time Temp Pulse Resp B/P Pulse Ox O2 Delivery O2 Flow Rate FiO2 07/29/16 10:49 69 170/60 07/29/16 10:46 20 07/29/16 06:00 97.3 93 Room Air 07/26/16 04:29 2.0 I&O- Last 24 Hours up to 6 AM 07/29/16 06:00 Intake Total 1220 ml Output Total 350 ml Balance 870 ml Laboratory Data 24H LABS Laboratory Tests 2 07/29/16 06:28: Anion Gap 9, Blood Urea Nitrogen 16, Creatinine 0.84, Sodium Level 138, Potassium Level 3.5, Chloride Level 96L, Carbon Dioxide Level 33H, Calcium Level 8.7L, Glomerular Filtration Rate > 60.0 CBC/BMP Laboratory Tests 07/29/16 06:28 Calcium Level 8.7 L, Red Blood Count 3.82 L, Mean Corpuscular Volume 94.3, Mean Corpuscular Hemoglobin 31.9, Mean Corpuscular Hemoglobin Concent 33.9, Red Cell Distribution Width 13.7 Microbiology Microbiology 07/24/16 Blood Culture - Final, Complete NO GROWTH AFTER 5 DAYS 07/23/16 Blood Culture - Final, Complete NO GROWTH AFTER 5 DAYS 07/28/16 Stool Occult Blood (JOCELYNE) - Final, Complete 07/24/16 Group A Streptococcus Screen (JOCELYNE) - Final, Complete 07/24/16 Group A Streptococcus Screen (JOCELYNE) - Final, Complete 07/24/16 MRSA Screen - Final, Complete 07/23/16 Influenza Virus Type A Antigen - Final, Complete 07/23/16 Influenza Virus Type B Antigen - Final, Complete 07/23/16 Urine Culture - Final, Complete LOLA GIL MD Jul 29, 2016 10:53
[2016-07-29 14:00] VITALS: BP 146/81
[2016-07-29] MEDS: ANALGESIC BALM CRM 120 GM TOP SCH ×2 (15:24→21:59)
[2016-07-29] MEDS: VANCOMYCIN HCL 1,000 MG, VIAL MATE ADAPTER 1 EACH in D5W 250 ML IV SCH (17:52)
[2016-07-29 18:00] VITALS: BP 164/84
[2016-07-29] MEDS: **NOTE PATIENT COMMENT** MISC XX SCH (21:00)
[2016-07-29 22:00] VITALS: BP 190/94
[2016-07-29] MEDS: LOSARTAN 50 MG TAB PO SCH (22:01)
[2016-07-30 02:00] VITALS: BP 154/78
[2016-07-30 06:00] VITALS: BP 160/84
[2016-07-30] MEDS: SLF 3 ML SYR IV SCH (06:03)
[2016-07-30] MEDS: LEVOTHYROXINE 0.137 MG TAB (137MCG) PO SCH (06:03)
[2016-07-30 07:18] LABS: MEAN CORPUSCULAR HEMOGLOBIN 32.1 pg (27.0-33.0); MEAN CORPUSCULAR HGB CONC 34.2 g/dl (32.0-36.5); MEAN CORPUSCULAR VOLUME 93.8 fl (80.0-96.0); RED CELL DISTRIBUTION WIDTH 13.6 % (11.5-14.5)
[2016-07-30 07:25] LABS: ANION GAP 9 MEQ/L (8-16); BLOOD UREA NITROGEN 13 MG/DL (7-18); CALCIUM LEVEL 8.6 MG/DL (8.8-10.2); CARBON DIOXIDE LEVEL 34 MEQ/L (21-32); CHLORIDE LEVEL 96 MEQ/L (98-107); CREATININE FOR GFR 0.83 MG/DL (0.55-1.02); GLOMERULAR FILTRATION RATE > 60.0 (>32); GLUCOSE, FASTING 163 MG/DL (83-110); POTASSIUM SERUM 3.3 MEQ/L (3.5-5.1); SODIUM LEVEL 139 MEQ/L (136-145)
[2016-07-30] MEDS ORDERED: POTASSIUM CHLORIDE 10 MEQ SR TABLET PO SCH (09:00)
[2016-07-30 09:19] LABS: MAGNESIUM LEVEL 1.8 MG/DL (1.8-2.4)
[2016-07-30 10:00] VITALS: BP 146/79
[2016-07-30] MEDS: MEROPENEM INJ 1 GM in D5W MINI-BAG PLUS 100 ML IV SCH (10:00)
[2016-07-30] MEDS ORDERED: ATOR1TAB19 PO (10:01)
[2016-07-30] MEDS: ASPIRIN 81 MG ENTERIC TAB PO SCH (10:26)
[2016-07-30] MEDS: ENOXAPARIN 30 MG/0.3 ML SYR (J1650) SC SCH (10:26)
[2016-07-30] MEDS: LIDOCAINE 5% (LIDODERM) PATCH TD SCH (10:26)
[2016-07-30 10:27] VITALS: BP 160/84
[2016-07-30] MEDS: PROPRANOLOL 80 MG LA CAP PO SCH (10:27)
[2016-07-30] MEDS: GABAPENTIN 300 MG CAP PO SCH (10:27)
[2016-07-30] MEDS: ACETAMINOPHEN 500 MG TAB PO SCH (10:28)
[2016-07-30] MEDS: ATORVASTATIN 10 MG TAB PO SCH (10:29)
[2016-07-30] MEDS: SPIRONOLACTONE 25 MG TAB PO SCH (10:29)
[2016-07-30] MEDS: ESCITALOPRAM OXALATE 10 MG TAB (LEXAPRO) PO SCH (10:29)
[2016-07-30] MEDS: TORSEMIDE (DEMADEX) 50 MG PER 1/2 TAB PO SCH (10:30)
[2016-07-30] MEDS: VITAMIN D 1,000 INTERNATIONAL UNITS TABLET PO SCH (10:30)
[2016-07-30] MEDS: LACTOBACILLUS ACIDOPHILUS CAP (BACID) PO SCH (10:31)
[2016-07-30] MEDS: PRIMIDONE 250 MG TAB PO SCH (10:31)
[2016-07-30] MEDS: ANALGESIC BALM CRM 120 GM TOP SCH (10:32)
[2016-07-30] MEDS: traMADol 50 MG TAB PO SCH (10:32)
[2016-07-30] MEDS: LIDOCAINE 5% OINT 30 GM TOP SCH (10:32)
[2016-07-30] MEDS: NYSTATIN 100,000 UNITS/GM TOPICAL PWD 15 GM TOP SCH (10:33)
--- NOTE | 2016-07-31 07:31 | DSES ---
DATE OF ADMISSION: 07/23/2016 DATE OF DISCHARGE: 07/30/2016 PRIMARY CARE PROVIDER: Dr. Rosales. LIGHT BULB ASSEMBLER: Dr. South. FINAL DIAGNOSIS: Non-ST elevation myocardial infarction. Severe sepsis secondary to health care associated bacterial pneumonia. Abdominal pain. Hypothyroidism. Tremors. Polyneuropathy. Colitis. Depression. Vitamin D deficiency. Chronic pain. Diverticulosis. Diastolic heart failure, chronic. Pulmonary hypertension. Chronic kidney disease (CKD) stage III. Hypertension. Macular degeneration. HISTORY OF PRESENT ILLNESS: This is an 85-year-old female patient with underlying medical history of gastroesophageal reflux disease (GERD), hypothyroidism, anemia, essential tremors, polyneuropathy, general muscle weakness, colitis, chronic kidney disease (CKD) stage III, diastolic heart failure, dermatitis, depression, dyslipidemia, hypertension, hypokalemia, vitamin D deficiency, chronic pain, constipation, dyspepsia, macular degeneration from [facility] presented with altered mental status accompanied by patient's daughter. Patient was found at the detention when the daughter called. Patient was muddling and babbling. The daughter could not think of anything. Believes that mother might have just needed a nap, however when later, patient was found by the aide holding on to the phone babbling and muttering, limited history secondary to confusion. Does report some abdominal pain on presentation. Had some associated nausea but no vomiting. Reported chill and fevers. Reported shortness of breath for several days. On presentation was alert, oriented times two. Subsequently patient was admitted for severe sepsis secondary to likely health care associated bacterial pneumonia. Patient was placed on vancomycin and meropenem. Cultures were sent. Lactic acid was followed. Patient's hospital course was complicated by elevated cardiac enzyme but patient did not want catheterization. Cardiology was subsequently consulted. Patient was given therapeutic Lovenox anticoagulation for 3 days. Cardiac enzyme was trend to peak. Lactic acidosis has also improved. Patient's mental status slowly returned to baseline. Has been afebrile tolerating diet. With treatment of antibiotics, cultures remained negative. Patient completed a course of 7 days of IV antibiotics. Currently has returned to baseline. Tolerating oral. Abdominal pain has also resolved. CT scan has been appreciated. Patient currently comfortable, tolerating oral, afebrile, ready for followup as outpatient for further care. Vital signs: Temperature 97.4, pulse 71, respirations 20, blood pressure 160/84 , pulse ox 92% on room air. Laboratory: WBC 10, hemoglobin and hematocrit 12.5/36.6, platelets 313. Chemistry: Sodium 139, potassium 3.4, chloride 99, bicarbonate 32, BUN 21, creatinine 1.2, troponin 0.8. DISCHARGE MEDICATION: - Lipitor 10 mg by mouth daily - acetaminophen as needed 500 mg twice daily - albuterol nebulizer treatment four times daily as needed - Maalox four times daily as needed - aspirin 81 mg by mouth daily - Biotin moisturizing cream as needed - Dulcolax suppository 10 mg per rectal daily as needed - vitamin D 5000 units by mouth daily - vitamin B12 1000 mcg by mouth daily - Lexapro 20 mg by mouth daily - fish oil 1000 mg by mouth daily - Neurontin 600 mg by mouth twice daily - Bacid one tablet by mouth twice daily - Synthroid 137 mcg by mouth daily - lidocaine 5% ointment topical four times daily - loperamide 2 mg by mouth daily as needed - Losartan 50 mg by mouth daily at bedtime - Milk of magnesia 30 mL by mouth as needed daily - potassium chloride 20 mEq by mouth daily - primidone 250 mg by mouth twice daily - propranolol 160 mg by mouth daily - fleet enema daily as needed constipation - spironolactone 25 mg by mouth daily - torsemide 50 mg by mouth twice daily - Toradol 25 mg by mouth twice daily DISCHARGE INSTRUCTIONS: Patient is instructed to followup with primary care provider in 5-7 days for further care. Return to the hospital if symptoms worsen. [facility]
== END 2016-07-30 11:16 | DRG 871 ==
LOC: M ED 20:43 → M ED INP 21:37 → M PCU 07-24 00:01 → M MSPAV 07-27 12:16
PROVIDERS: ADMIT Internal Medicine; ATTEND Hospitalist
DX: A41.9 Sepsis, unspecified organism (principal); J18.9 Pneumonia, unspecified organism; I21.4 Non-ST elevation (NSTEMI) myocardial infarction; I50.32 Chronic diastolic (congestive) heart failure; I13.0 Hypertensive heart and chronic kidney disease with heart failure and stage 1 through stage 4 chronic kidney disease, or unspecified chronic kidney disease; R65.20 Severe sepsis without septic shock; K21.9 Gastro-esophageal reflux disease without esophagitis; E03.9 Hypothyroidism, unspecified; D64.9 Anemia, unspecified; Z66 Do not resuscitate; G62.9 Polyneuropathy, unspecified; N18.3 Chronic kidney disease, stage 3 (moderate); F32.9 Major depressive disorder, single episode, unspecified; L30.9 Dermatitis, unspecified; E87.6 Hypokalemia; E55.9 Vitamin D deficiency, unspecified; K59.00 Constipation, unspecified; H35.30 Unspecified macular degeneration; M62.81 Muscle weakness (generalized); H04.123 Dry eye syndrome of bilateral lacrimal glands; I27.2 Other secondary pulmonary hypertension; K57.90 Diverticulosis of intestine, part unspecified, without perforation or abscess without bleeding; E66.9 Obesity, unspecified; K52.9 Noninfective gastroenteritis and colitis, unspecified; B00.9 Herpesviral infection, unspecified; R25.1 Tremor, unspecified; G89.29 Other chronic pain; Z79.82 Long term (current) use of aspirin; Z79.891 Long term (current) use of opiate analgesic; Z79.899 Other long term (current) drug therapy; Z88.0 Allergy status to penicillin; Z88.5 Allergy status to narcotic agent; Z88.1 Allergy status to other antibiotic agents; Z91.048 Other nonmedicinal substance allergy status; Z88.8 Allergy status to other drugs, medicaments and biological substances; Z96.641 Presence of right artificial hip joint; Z96.652 Presence of left artificial knee joint; Z85.828 Personal history of other malignant neoplasm of skin; Z68.37 Body mass index [BMI] 37.0-37.9, adult

== ENCOUNTER → 2016-07-23 | Outpatient (REF) | payer MEDICARE, MEDICAID ==
[~2016-07-23] MED LIST changes: +ACET50TAOT PO; +ALUMSUS2 PO; +BIOTSPR MT; +INDE1CAP6 PO; +LIDO1OIN2 TOP; +LOPE2TAB5 PO; +MYLASSUD PO; +POTA10CA PO; +SYNT137T7 PO; +TRAM50TA2 PO
[2016-07-23 17:13] LABS: BASO % 0.2 % (0.0-1.0); EOS # 0.2 K/mm3 (0.0-0.50); LARGE UNSTAINED CELL # 0.2 K/mm3 (0.0-0.4); LARGE UNSTAINED CELL % 1.2 % (0.0-4.0); LYMPH # 0.8 K/mm3 (1.5-4.5); LYMPH % 4.9 % (24.0-44.0); MEAN CORPUSCULAR HEMOGLOBIN 32.1 pg (27.0-33.0); MEAN CORPUSCULAR HGB CONC 33.4 g/dl (32.0-36.5); MONO # 0.6 K/mm3 (0.0-0.8); MONO % 3.3 % (0.0-5.0); NEUTROPHILS # 14.9 K/mm3 (1.8-7.7); NEUTROPHILS % 89.5 % (36.0-66.0); PLATELET COUNT, AUTOMATED 345 k/mm3 (150-450); RED CELL DISTRIBUTION WIDTH 13.7 % (11.5-14.5); WHITE BLOOD COUNT 16.6 K/mm3 (4.0-10.0)
[2016-07-23 17:36] LABS: CALCIUM LEVEL 9.3 MG/DL (8.8-10.2); CREATININE FOR GFR 1.11 MG/DL (0.55-1.02); GLOMERULAR FILTRATION RATE 49.7 (>32)
== END ==
LOC: M LAB 16:59
PROVIDERS: ATTEND Internal Medicine
DX: R50.9 Fever, unspecified (principal); R41.82 Altered mental status, unspecified

== ENCOUNTER 2016-08-01 05:42 | Emergency (ER) | payer MEDICARE, MEDICAID ==
[~2016-08-01] VITALS: Ht 157.5 cm; Wt 90.7 kg
[2016-08-01] MEDS ORDERED: TETRACAINE 0.5% OPHTH SOLN 4ML OD ONE (08:15)
[2016-08-01 10:04] VITALS: BP 149/63
== END 2016-08-01 10:06 | disposition home or self-care (01) ==
LOC: EDBD 05:42 → M ED 07:30
DX: H54.7 Unspecified visual loss (principal); I50.32 Chronic diastolic (congestive) heart failure; I12.0 Hypertensive chronic kidney disease with stage 5 chronic kidney disease or end stage renal disease; E11.22 Type 2 diabetes mellitus with diabetic chronic kidney disease; N18.6 End stage renal disease; D64.9 Anemia, unspecified; Z79.899 Other long term (current) drug therapy; Z79.891 Long term (current) use of opiate analgesic; Z79.82 Long term (current) use of aspirin; Z88.0 Allergy status to penicillin; Z88.1 Allergy status to other antibiotic agents; Z88.5 Allergy status to narcotic agent; L23.1 Allergic contact dermatitis due to adhesives

== ENCOUNTER → 2016-08-01 | Outpatient (REF) | payer MEDICARE, MEDICAID ==
[~2016-08-01] MED LIST changes: +ACET50TAOT PO; +ALUMSUS2 PO; +ATOR1TAB19 PO; +BIOTSPR MT; +INDE1CAP6 PO; +LIDO1OIN2 TOP; +LOPE2TAB5 PO; +MYLASSUD PO; +POTA10CA PO; +SYNT137T7 PO; +TRAM50TA2 PO
[2016-08-01 16:31] LABS: ANION GAP 11 MEQ/L (8-16); BLOOD UREA NITROGEN 15 MG/DL (7-18); CALCIUM LEVEL 8.8 MG/DL (8.8-10.2); CARBON DIOXIDE LEVEL 32 MEQ/L (21-32); CHLORIDE LEVEL 96 MEQ/L (98-107); CREATININE FOR GFR 0.93 MG/DL (0.55-1.02); GLOMERULAR FILTRATION RATE > 60.0 (>32); GLUCOSE, FASTING 216 MG/DL (83-110); POTASSIUM SERUM 4.2 MEQ/L (3.5-5.1); SODIUM LEVEL 139 MEQ/L (136-145)
[2016-08-01 16:44] LABS: MEAN CORPUSCULAR HEMOGLOBIN 31.6 pg (27.0-33.0); MEAN CORPUSCULAR HGB CONC 32.6 g/dl (32.0-36.5); MEAN CORPUSCULAR VOLUME 96.7 fl (80.0-96.0); RED CELL DISTRIBUTION WIDTH 13.9 % (11.5-14.5); WHITE BLOOD COUNT 11.3 K/mm3 (4.0-10.0)
== END ==
PROVIDERS: ATTEND Internal Medicine
DX: N18.6 End stage renal disease (principal); E11.9 Type 2 diabetes mellitus without complications

== ENCOUNTER → 2016-08-06 | Outpatient (REF) | payer MEDICARE, MEDICAID ==
[2016-08-06 10:13] LABS: MEAN CORPUSCULAR HEMOGLOBIN 31.9 pg (27.0-33.0); MEAN CORPUSCULAR HGB CONC 32.9 g/dl (32.0-36.5); MEAN CORPUSCULAR VOLUME 96.9 fl (80.0-96.0); RED CELL DISTRIBUTION WIDTH 13.7 % (11.5-14.5); WHITE BLOOD COUNT 8.6 K/mm3 (4.0-10.0)
[2016-08-06 10:35] LABS: ANION GAP 9 MEQ/L (8-16); BLOOD UREA NITROGEN 11 MG/DL (7-18); CALCIUM LEVEL 8.9 MG/DL (8.8-10.2); CARBON DIOXIDE LEVEL 31 MEQ/L (21-32); CHLORIDE LEVEL 99 MEQ/L (98-107); CREATININE FOR GFR 0.86 MG/DL (0.55-1.02); GLOMERULAR FILTRATION RATE > 60.0 (>32); GLUCOSE, FASTING 183 MG/DL (83-110); POTASSIUM SERUM 4.6 MEQ/L (3.5-5.1); SODIUM LEVEL 139 MEQ/L (136-145)
== END ==
PROVIDERS: ATTEND Internal Medicine
DX: E11.9 Type 2 diabetes mellitus without complications (principal); N18.9 Chronic kidney disease, unspecified

== ENCOUNTER → 2016-08-13 | Outpatient (REF) ==
[2016-08-13 10:06] LABS: MEAN CORPUSCULAR HGB CONC 32.1 g/dl (32.0-36.5); MEAN CORPUSCULAR VOLUME 96.4 fl (80.0-96.0); RED CELL DISTRIBUTION WIDTH 13.7 % (11.5-14.5); WHITE BLOOD COUNT 7.7 K/mm3 (4.0-10.0)
[2016-08-13 10:13] LABS: ANION GAP 10 MEQ/L (8-16); BLOOD UREA NITROGEN 12 MG/DL (7-18); CARBON DIOXIDE LEVEL 29 MEQ/L (21-32); CHLORIDE LEVEL 102 MEQ/L (98-107); CREATININE FOR GFR 0.85 MG/DL (0.55-1.02); GLOMERULAR FILTRATION RATE > 60.0 (>32); GLUCOSE, FASTING 176 MG/DL (83-110); POTASSIUM SERUM 4.1 MEQ/L (3.5-5.1); SODIUM LEVEL 141 MEQ/L (136-145)
== END ==
PROVIDERS: ATTEND Internal Medicine
DX: N18.9 Chronic kidney disease, unspecified (principal)

== ENCOUNTER → 2016-08-20 | Outpatient (REF) | payer MEDICARE, MEDICAID ==
[2016-08-20 10:27] LABS: MEAN CORPUSCULAR HEMOGLOBIN 31.4 pg (27.0-33.0); MEAN CORPUSCULAR HGB CONC 32.7 g/dl (32.0-36.5); MEAN CORPUSCULAR VOLUME 95.9 fl (80.0-96.0); RED CELL DISTRIBUTION WIDTH 14.3 % (11.5-14.5); WHITE BLOOD COUNT 11.1 K/mm3 (4.0-10.0)
[2016-08-20 10:36] LABS: CALCIUM LEVEL 9.3 MG/DL (8.8-10.2); GLOMERULAR FILTRATION RATE 56.1 (>32); POTASSIUM SERUM 3.8 MEQ/L (3.5-5.1)
== END ==
PROVIDERS: ATTEND Internal Medicine
DX: E11.9 Type 2 diabetes mellitus without complications (principal); N18.9 Chronic kidney disease, unspecified

== ENCOUNTER → 2016-08-26 | Outpatient (REF) | payer MEDICARE, MEDICAID ==
[2016-08-26 13:46] LABS: MEAN CORPUSCULAR HEMOGLOBIN 31.6 pg (27.0-33.0); MEAN CORPUSCULAR VOLUME 95.6 fl (80.0-96.0); WHITE BLOOD COUNT 9.7 K/mm3 (4.0-10.0)
--- NOTE | 2016-08-26 16:42 | REP ---
CHEST, SINGLE VIEW: Single view of the chest is performed and compared to prior study of 07/23/2016. There is persistent left lower lobe infiltrate again seen. Right lung demonstrates no definite acute infiltrate or other acute change. The cardiac silhouette is mildly prominent and there is calcified torturous aorta. Multiple mediastinal calcified lymph nodes are present. IMPRESSION: Persistent left lower lobe infiltrate as seen on prior study of 07/23/2016. Signed by Gato Courtney MD 08/26/2016 04:47 P
== END ==
PROVIDERS: ATTEND Internal Medicine
DX: R91.8 Other nonspecific abnormal finding of lung field (principal)

== ENCOUNTER 2016-09-06 22:39 | Emergency (ER) | payer MEDICARE, MEDICAID ==
[~2016-09-06] VITALS: Ht 165.1 cm; Wt 90.7 kg
[2016-09-06] MEDS ORDERED: PRED10TA PO (22:58)
[2016-09-06] MEDS ORDERED: KEFL500C7 PO (23:18)
[2016-09-06] MEDS ORDERED: CEPHALEXIN 500 MG CAP PO ONE (23:30)
[2016-09-07 00:35] VITALS: BP 138/56
--- NOTE | 2016-09-07 08:17 | REP ---
Left toes three views: There are no comparisons. There is diffuse demineralization. I suspect there are fractures at the in the necks of the second digit, third digit, fourth digit and fifth digit metatarsals. Additionally I suspect a nondisplaced fracture, intra-articular, at the base of the second digit proximal phalange. This should be correlated with clinical point tenderness. CT might be required for confirmation. There is no dislocation. There is circumferential soft tissue edema of the forefoot. Signed by Gato Nelson MD 09/07/2016 08:10 A
--- NOTE | 2016-09-07 08:26 | REP ---
Bilateral hips and AP pelvis: Right hip three views,: There is a total hip arthroplasty. There is no fracture or dislocation. There is no loosening. Diffuse demineralization is noted. The left hip two views: There is diffuse demineralization. There is osteoarthritis with deformity of the femoral head. There is no acute fracture or dislocation. AP pelvis: No pelvic fractures are identified. The sacroiliac articulations are unremarkable. There are pelvic calcifications, ureteral versus phleboliths. 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 Signed by Gato Nelson MD 09/07/2016 08:17 A
--- NOTE | 2016-09-07 08:30 | REP ---
Bilateral shoulders: There are no comparisons. Right shoulder single AP view: There is no fracture or dislocation. There is acromioclavicular osteoarthritis. There is diffuse demineralization. There are no calcifications or foreign bodies. Left shoulder single AP view: There is no fracture or dislocation. There is diffuse demineralization. There is acromioclavicular osteoarthritis. There are no calcifications or foreign bodies. Signed by Gato Nelson MD 09/07/2016 08:22 A
== END 2016-09-07 00:37 | disposition home or self-care (01) ==
LOC: M ED 23:30
DX: S91.115A Laceration without foreign body of left lesser toe(s) without damage to nail, initial encounter (principal); W06.XXXA Fall from bed, initial encounter; Y92.122 Bedroom in nursing home as the place of occurrence of the external cause; Y93.89 Activity, other specified; Y99.9 Unspecified external cause status

== ENCOUNTER → 2016-09-09 | Outpatient (CLI) | payer MEDICARE, MEDICAID ==
[~2016-09-09] MED LIST changes: +KEFL500C7 PO; +PRED10TA PO
--- NOTE | 2016-09-09 13:19 | REP ---
CT LEFT FOOT: CT left foot is performed in the axial plane with sagittal and coronal reconstruction images. Correlation made with plain films, 09/06/2016. There appears to be nondisplaced fracture of the distal 5th metatarsal in the region of the neck of the metatarsal. No other definite fracture seen of the visualized osseous structures. There is no dislocation. There is mild narrowing of the 1st metatarsophalangeal joint as well as of the interphalangeal joints diffusely. Lipoma is seen in the anterior aspect of the calcaneus. This has a diameter of 2.5 cm. There is soft tissue edema along the lateral dorsum of the foot in a subcutaneous location. IMPRESSION: Nondisplaced fracture distal 5th metatarsal. No other evidence of fracture or dislocation. Signed by Gato Courtney MD 09/09/2016 08:09 P
== END ==
LOC: M RAD 12:01
PROVIDERS: ATTEND Nurse Practitioner Family
DX: S92.355A Nondisplaced fracture of fifth metatarsal bone, left foot, initial encounter for closed fracture (principal); X58.XXXA Exposure to other specified factors, initial encounter; Y93.9 Activity, unspecified; Y92.9 Unspecified place or not applicable; Y99.8 Other external cause status

== ENCOUNTER → 2016-09-18 | Outpatient (REF) | payer MEDICARE, MEDICAID ==
[2016-09-18 10:12] LABS: MEAN CORPUSCULAR HEMOGLOBIN 32.6 pg (27.0-33.0); MEAN CORPUSCULAR HGB CONC 33.2 g/dl (32.0-36.5); MEAN CORPUSCULAR VOLUME 98.3 fl (80.0-96.0); RED CELL DISTRIBUTION WIDTH 13.7 % (11.5-14.5); WHITE BLOOD COUNT 7.6 K/mm3 (4.0-10.0)
[2016-09-18 10:23] LABS: CALCIUM LEVEL 8.7 MG/DL (8.8-10.2); CREATININE FOR GFR 1.01 MG/DL (0.55-1.02); GLOMERULAR FILTRATION RATE 55.5 (>32)
== END ==
PROVIDERS: ATTEND Internal Medicine
DX: E11.9 Type 2 diabetes mellitus without complications (principal); N18.9 Chronic kidney disease, unspecified

== ENCOUNTER → 2016-10-18 | Outpatient (REF) | payer MEDICARE, MEDICAID, OTHER ==
[2016-10-18 12:38] LABS: FOLATE 3.5 NG/ML (>5.4)
[2016-10-18 12:41] LABS: MEAN CORPUSCULAR HEMOGLOBIN 32.1 pg (27.0-33.0); MEAN CORPUSCULAR HGB CONC 33.3 g/dl (32.0-36.5); MEAN CORPUSCULAR VOLUME 96.4 fl (80.0-96.0); RED CELL DISTRIBUTION WIDTH 13.7 % (11.5-14.5); WHITE BLOOD COUNT 7.3 K/mm3 (4.0-10.0)
[2016-10-18 12:43] LABS: ALBUMIN/GLOBULIN RATIO 0.77 (1.00-1.93); BILIRUBIN,TOTAL 0.3 MG/DL (0.2-1.0); CALCIUM LEVEL 8.8 MG/DL (8.8-10.2); CREATININE FOR GFR 0.95 MG/DL (0.55-1.02); GLOMERULAR FILTRATION RATE 59.5 (>32); POTASSIUM SERUM 3.7 MEQ/L (3.5-5.1); TOTAL PROTEIN 6.9 GM/DL (6.4-8.2)
== END ==
PROVIDERS: ATTEND Internal Medicine
DX: R41.82 Altered mental status, unspecified (principal); Z79.899 Other long term (current) drug therapy

== ENCOUNTER → 2016-10-22 | Outpatient (REF) | payer MEDICARE, MEDICAID, OTHER ==
[2016-10-22 11:30] LABS: MEAN CORPUSCULAR HEMOGLOBIN 32.1 pg (27.0-33.0); MEAN CORPUSCULAR HGB CONC 33.3 g/dl (32.0-36.5); MEAN CORPUSCULAR VOLUME 96.4 fl (80.0-96.0); RED CELL DISTRIBUTION WIDTH 13.7 % (11.5-14.5); WHITE BLOOD COUNT 6.9 K/mm3 (4.0-10.0)
[2016-10-22 11:45] LABS: ANION GAP 7 MEQ/L (8-16); BLOOD UREA NITROGEN 13 MG/DL (7-18); CALCIUM LEVEL 9.2 MG/DL (8.8-10.2); CARBON DIOXIDE LEVEL 35 MEQ/L (21-32); CHLORIDE LEVEL 95 MEQ/L (98-107); CREATININE FOR GFR 0.93 MG/DL (0.55-1.02); GLOMERULAR FILTRATION RATE > 60.0 (>32); GLUCOSE, FASTING 127 MG/DL (83-110); POTASSIUM SERUM 3.7 MEQ/L (3.5-5.1); SODIUM LEVEL 137 MEQ/L (136-145)
== END ==
PROVIDERS: ATTEND Internal Medicine
DX: N18.9 Chronic kidney disease, unspecified (principal); Z79.899 Other long term (current) drug therapy

== ENCOUNTER → 2016-11-20 | Outpatient (REF) | payer MEDICARE, MEDICAID, OTHER ==
[~2016-11-20] MED LIST changes: +ACET-683 PO; -ACET500T37 PO; -ASPI81TA13 PO; +ASPI81TA24 PO; +BACITAB PO; -BACITAB3 PO; +BACT2OIN10 TOP; -BACT2OIN2 TOP; +ENEMENE16 PR; -ENEMENE3 PR; +KEFL500C17 PO; -KEFL500C7 PO; +LOPE2CAP PO; -LOPE2TAB PO; -NAPR500T2 PO; +NAPR500T3 PO; -POLY0.05 OU; +POLY1.4S OU; -PRED10TA PO; +PRED10TA2 PO; -PRIM250T5 PO; +PRIM250T8 PO; -ULTR50TA PO; +ULTR50TA8 PO; +VOLT1GEL15 TOP; -VOLT1GEL24 TOP
[2016-11-20 10:59] LABS: MEAN CORPUSCULAR HEMOGLOBIN 31.4 pg (27.0-33.0); MEAN CORPUSCULAR HGB CONC 32.4 g/dl (32.0-36.5); RED CELL DISTRIBUTION WIDTH 13.4 % (11.5-14.5); WHITE BLOOD COUNT 7.9 K/mm3 (4.0-10.0)
[2016-11-20 11:19] LABS: GLOMERULAR FILTRATION RATE 56.1 (>32); POTASSIUM SERUM 3.7 MEQ/L (3.5-5.1)
== END ==
PROVIDERS: ATTEND Internal Medicine
DX: N18.9 Chronic kidney disease, unspecified (principal)

== ENCOUNTER → 2016-11-27 | Outpatient (REF) | payer MEDICARE, MEDICAID, OTHER | PROVIDERS: ATTEND Internal Medicine | DX: E03.9 Hypothyroidism, unspecified (principal) ==

== ENCOUNTER → 2016-12-02 | Outpatient (REF) | payer MEDICARE, MEDICAID, OTHER ==
--- NOTE | 2016-12-10 12:02 | NOCOX ---
DATE OF PROCEDURE: 12/04/2016 Nocturnal recording oximetry was performed on room air. Baseline saturation 96%. Lowest oxygen saturation recorded 92%. The pattern was one of minimal variability. IMPRESSION: Normal nocturnal recording oximetry on room air.
== END ==
PROVIDERS: ATTEND Internal Medicine
DX: R51 Headache (principal); R06.83 Snoring

== ENCOUNTER → 2016-12-02 | Outpatient (REF) | payer MEDICARE, MEDICAID, OTHER | PROVIDERS: ATTEND Internal Medicine | DX: R30.0 Dysuria (principal) ==

== ENCOUNTER → 2016-12-17 | Outpatient (REF) | payer MEDICARE, MEDICAID, OTHER ==
[2016-12-17 12:43] LABS: MEAN CORPUSCULAR HEMOGLOBIN 32.3 pg (27.0-33.0); MEAN CORPUSCULAR HGB CONC 32.8 g/dl (32.0-36.5); MEAN CORPUSCULAR VOLUME 98.5 fl (80.0-96.0); RED CELL DISTRIBUTION WIDTH 13.5 % (11.5-14.5); WHITE BLOOD COUNT 9.8 K/mm3 (4.0-10.0)
[2016-12-17 13:10] LABS: CALCIUM LEVEL 9.2 MG/DL (8.8-10.2); CREATININE FOR GFR 0.96 MG/DL (0.55-1.02); GLOMERULAR FILTRATION RATE 58.8 (>32); POTASSIUM SERUM 3.9 MEQ/L (3.5-5.1)
== END ==
PROVIDERS: ATTEND Internal Medicine
DX: N18.9 Chronic kidney disease, unspecified (principal)

== ENCOUNTER → 2017-01-20 | Outpatient (REF) | payer MEDICARE, MEDICAID ==
[2017-01-20 18:58] LABS: BASO % 0.4 % (0.0-1.0); EOS # 0.3 K/mm3 (0.0-0.50); EOS % 5.4 % (0.0-3.0); LARGE UNSTAINED CELL # 0.2 K/mm3 (0.0-0.4); LARGE UNSTAINED CELL % 2.6 % (0.0-4.0); LYMPH # 1.6 K/mm3 (1.5-4.5); LYMPH % 27.1 % (24.0-44.0); MEAN CORPUSCULAR HGB CONC 34.6 g/dl (32.0-36.5); MEAN CORPUSCULAR VOLUME 95.3 fl (80.0-96.0); MONO # 0.3 K/mm3 (0.0-0.8); MONO % 5.7 % (0.0-5.0); NEUTROPHILS # 3.6 K/mm3 (1.8-7.7); NEUTROPHILS % 58.8 % (36.0-66.0); PLATELET COUNT, AUTOMATED 294 k/mm3 (150-450); RED CELL DISTRIBUTION WIDTH 13.7 % (11.5-14.5)
[2017-01-20 19:14] LABS: CALCIUM LEVEL 9.1 MG/DL (8.8-10.2); CREATININE FOR GFR 1.04 MG/DL (0.55-1.02); GLOMERULAR FILTRATION RATE 53.5 (>32); POTASSIUM SERUM 4.2 MEQ/L (3.5-5.1)
== END ==
PROVIDERS: ATTEND Internal Medicine
DX: R09.02 Hypoxemia (principal)

== ENCOUNTER → 2017-01-21 | Outpatient (REF) | payer MEDICARE, MEDICAID ==
[2017-01-21 11:20] LABS: BASO % 0.5 % (0.0-1.0); EOS # 0.4 K/mm3 (0.0-0.50); EOS % 5.2 % (0.0-3.0); LARGE UNSTAINED CELL # 0.1 K/mm3 (0.0-0.4); LARGE UNSTAINED CELL % 1.7 % (0.0-4.0); LYMPH # 1.7 K/mm3 (1.5-4.5); MEAN CORPUSCULAR HEMOGLOBIN 32.4 pg (27.0-33.0); MEAN CORPUSCULAR HGB CONC 33.3 g/dl (32.0-36.5); MEAN CORPUSCULAR VOLUME 97.1 fl (80.0-96.0); MONO # 0.3 K/mm3 (0.0-0.8); MONO % 4.4 % (0.0-5.0); NEUTROPHILS % 66.2 % (36.0-66.0); PLATELET COUNT, AUTOMATED 335 k/mm3 (150-450); RED CELL DISTRIBUTION WIDTH 13.7 % (11.5-14.5); WHITE BLOOD COUNT 7.6 K/mm3 (4.0-10.0)
[2017-01-21 12:22] LABS: CALCIUM LEVEL 9.2 MG/DL (8.8-10.2); CREATININE FOR GFR 1.12 MG/DL (0.55-1.02); GLOMERULAR FILTRATION RATE 49.1 (>32); POTASSIUM SERUM 3.9 MEQ/L (3.5-5.1)
--- NOTE | 2017-01-21 16:00 | REP ---
Clinical: Hypoxia. Comparison: 08/26/2016. Findings: Cardiomegaly is suggested along with interstitial edema and pulmonary vascular congestion including bibasilar atelectasis and pleural effusions (left greater than right). No pneumothorax. Chronic calcified hilar and mediastinal lymph nodes are again identified and unchanged. Skeletal structures demonstrate age-related changes. Impression: Pulmonary vascular congestion and interstitial edema with bibasilar atelectasis and pleural effusions (left greater than right). Signed by Franco Raphael MD 01/21/2017 03:51 P
== END ==
PROVIDERS: ATTEND Internal Medicine
DX: R09.02 Hypoxemia (principal); E78.00 Pure hypercholesterolemia, unspecified; E11.9 Type 2 diabetes mellitus without complications

== ENCOUNTER → 2017-01-22 | Outpatient (REF) | payer MEDICARE, MEDICAID | PROVIDERS: ATTEND Internal Medicine | DX: R51 Headache (principal) ==

== ENCOUNTER → 2017-01-28 | Outpatient (REF) | payer MEDICARE, MEDICAID ==
[2017-01-28 11:20] LABS: CALCIUM LEVEL 8.9 MG/DL (8.8-10.2); CREATININE FOR GFR 1.09 MG/DL (0.55-1.02); GLOMERULAR FILTRATION RATE 50.7 (>32)
== END ==
PROVIDERS: ATTEND Internal Medicine
DX: I50.9 Heart failure, unspecified (principal)

== ENCOUNTER → 2017-02-04 | Outpatient (REF) | payer MEDICARE, MEDICAID ==
[2017-02-04 10:46] LABS: CALCIUM LEVEL 8.7 MG/DL (8.8-10.2); POTASSIUM SERUM 3.7 MEQ/L (3.5-5.1)
== END ==
PROVIDERS: ATTEND Internal Medicine
DX: I50.9 Heart failure, unspecified (principal)

== ENCOUNTER → 2017-04-07 | Outpatient (REF) | payer MEDICARE, MEDICAID | PROVIDERS: ATTEND Internal Medicine | DX: R21 Rash and other nonspecific skin eruption (principal) ==

== ENCOUNTER → 2017-04-08 | Outpatient (REF) | payer MEDICARE, MEDICAID | PROVIDERS: ATTEND Internal Medicine | DX: R21 Rash and other nonspecific skin eruption (principal) ==